=== PATIENT | female | born 1940 | race Caucasian/White ===

== ENCOUNTER 2017-04-11 23:30 | Emergency (ER) | payer MEDICARE, OTHER ==
[2017-04-11 23:45] VITALS: O2SAT 95
--- NOTE | 2017-04-11 23:55 | ERPHSYRPT ---
- History of Present Illness Time Seen by Provider: 04/11/17 23:36 Source: patient, family Patient Subjective Stated Complaint: cut her arm on [place] its been bleeding for 2 days , patinuzhatn takes plavix Triage Nursing Assessment: pt alert and oreientedx3, ambulates well, gait is steady, has bleeding external and under the skin on left forearm leaked through gauze dressing that has been applied , pulses present bialteral radius cap refill immediate no other bleeding noted. Physician History: CC: left forearm injury HX: 76 y/o patient of Dr Kaur tore skin on left forearm yesterday on a [place]ena [place]. No FB. It continues to bleed despite pressure dressings. No other injuries. Tetanus vaccine up to date. Occurred: yesterday Severity of Pain-Max: mild Severity of Pain-Current: mild Extremities Pain Location: forearm: left Allergies/Adverse Reactions: zolpidem tartrate [From Ambien] Allergy (Verified 06/08/15 09:55) Home Medications: Alprazolam 1 mg [Xanax 1 mg] 1 mg PO BID 05/24/15 [History] Amlodipine Besylate 10 mg [Norvasc 10 MG] 10 mg PO DAILY 05/24/15 [History] Aspirin 81 gm Chew [Baby Aspirin 81 mg Chew] 81 mg PO BID 05/24/15 [ History] Clopidogrel Bisulfate 75 mg [PLAVIX 75 MG Tablet] 75 mg PO DAILY 05/24/15 [History] Ergocalciferol (Vitamin D2) [Vitamin D] 50,000 unit PO WEEKLY 05/24/15 [History] Fenofibrate,Micronized 145 mg* [Tricor 145 MG] 145 mg PO DAILY 05/24/15 [ History] Furosemide 1 tab PO BID 05/24/15 [History] Insulin Glargine [Lantus Insulin] 6 unit SQ HS 05/24/15 [History] Magnesium Oxide 400 mg [Mag-Ox 400] 400 mg PO BID 05/24/15 [History] Metoprolol Tartrate 50 mg PO DAILY 05/24/15 [History] Oxycodone HCl Cr 40 mg [Oxycontin 40 mg ER] 40 mg PO BID 05/24/15 [History ] PANTOPRAZOLE 40 mg Tablet [Protonix 40MG Tablet] 40 mg PO DAILY 05/24/15 [ History] Pravastatin Sodium 20 mg PO HS 05/24/15 [History] Hx Tetanus, Diphtheria Vaccination/Date Given: Yes Hx Influenza Vaccination/Date Given: Yes Hx Pneumococcal Vaccination/Date Given: Yes Immunizations Up to Date: Yes - Review of Systems Constitutional: No Fever Musculoskeletal: Injury (left forearm), No Back Pain, No Neck Pain - Past Medical History Pertinent Past Medical History: Yes Neurological History: TIA ENT History: No Pertinent History Cardiac History: Coronary Artery Disease, High Cholesterol, Hypertension, Myocardial Infarction ([place]) Respiratory History: No Pertinent History Endocrine Medical History: Diabetes Type I Musculoskeletal History: Arthritis, Degenerative Disk Disease, Osteoarthritis GI Medical History: Gallbladder Disease, Hernia History: Other Psycho-Social History: Anxiety Female Reproductive Disorders: No Pertinent History Other Medical History: Kidney stones - Past Surgical History Past Surgical History: Yes Neuro Surgical History: No Pertinent History Cardiac: CABG Respiratory: No Pertinent History Gastrointestinal: Appendectomy, Cholecystectomy, Other Genitourinary: No Pertinent History Musculoskeletal: Orthopedic Surgery Female Surgical History: Hysterectomy Other Surgical History: Colonoscopy, STENT PUT IN ARTERY IN STOMACH. bilat. knee replacement - Social History Smoking Status: Never smoker How long have you smoked: 2 MONTHS Exposure to second hand smoke: No Drug Use: none Patient Lives Alone: No - Female History Hx Now: No - Nursing Vital Signs Nursing Vital Signs: Initial Vital Signs Temperature 98.4 F 04/11/17 23:30 Pulse Rate 88 04/11/17 23:30 Respiratory Rate 18 04/11/17 23:30 O2 Sat by Pulse Oximetry 95 04/11/17 23:30 Pain Scale Pain Intensity 0 - Physical Exam General Appearance: alert Neck Exam: supple Cardiovascular/Respiratory Exam: regular rate/rhythm Mental Status Exam: alert, oriented x 3, cooperative Skin Exam: warm, dry, other (skin tear left forearm dorsal is resealed but has some bleeding at the unoppsed edge. No FB. Some eccymoses.) SpO2 Interpretation: normal SpO2: 95 Oxygen Delivery: Room Air - Course Nursing assessment & vital signs reviewed: Yes Ordered Tests: Active Orders 24 hr Category Date Time Status Wound Care STAT Care 04/11/17 23:49 Active - Progress Progress Note: 04/11/17 23:52 Will use surgicel pressure dressing. No sign of infection. Wound care intr given. 04/12/17 00:01 Bleeding is controlled with surgicel. Will dress and release. Counseled pt/family regarding: diagnosis, need for follow-up - Departure Time of Disposition: 00:01 Departure Disposition: Home Clinical Impression: Skin tear of left forearm without complication Qualifiers: Encounter type: initial encounter Qualified Code(s): S51.812A - Laceration without foreign body of left forearm, initial encounter Condition: Stable Critical Care Time: No Referrals: MIKY KAUR MD [Primary Care Provider] - Instructions: Abrasion Additional Instructions: Hold pressure for any bleeding. Change dressing AM. Cleanse gently with mild soap and water after dressing changes.
[2017-04-12 00:06] VITALS: BP 131/60; PULSE 79
== END 2017-04-12 00:12 | disposition home or self-care (01) ==
LOC: ED 23:30
DX: S81.812A Laceration without foreign body, left lower leg, initial encounter (principal); W45.8XXA Other foreign body or object entering through skin, initial encounter; Y93.H2 Activity, gardening and landscaping
CPT/HCPCS: 99283

== ENCOUNTER 2017-05-11 11:45 | Emergency (ER) | payer MEDICARE, OTHER ==
[2017-05-11] MEDS ORDERED: MORPHINE SULFATE 2 MG INJ IV ONE (12:05)
[2017-05-11] MEDS ORDERED: Zofran 4 MG/2 ML VIAL IV ONE (12:05)
--- NOTE | 2017-05-11 12:13 | ERPHSYRPT ---
- History of Present Illness Time Seen by Provider: 05/11/17 12:09 Source: patient, family Patient Subjective Stated Complaint: tripped over her shoes yestarday AM.. pain to right shoulder and bruuised. pain to left upper back with bruising and pain and bruising to left butticks. has been able to walk with pain. states was unable to get herself up after fall. layed on the floor for 30 minutes prior to help. Triage Nursing Assessment: alet and orieted x3. denies hitting head. tripped over box. pain to right shoulder. large bruising noted at scapular area. able to love arm with no difficulty. lungs clar bilateral. bruising noted to left lower back. pain on palpation. large bruising and swelling to left buttocks. pain on palpation. + pedal pulses bilat. strong flex/extension. Physician History: 77 yo female who is currently on plavix comes to the ER after tripping over a pair of shoes and landing on the right side of her shoulder and her left pelvic area. Pt arrives with a large area of eccymoses in both areas. Pt describes the pain as sharp, constant, 6/10, worse with movement and pt has not taken any pain meds. No LOC. Occurred: yesterday Reason for Fall: tripped Injuries/Pain Location: upper extremity, pelvis Loss of Consciousness: no loss of consciousness Quality: sharpness Allergies/Adverse Reactions: zolpidem tartrate [From Ambien] Allergy (Verified 06/08/15 09:55) Home Medications: Alprazolam 1 mg [Xanax 1 mg] 1 mg PO TID 05/24/15 [History] Amlodipine Besylate 10 mg [Norvasc 10 MG] 10 mg PO DAILY 05/24/15 [History] Aspirin 81 gm Chew [Baby Aspirin 81 mg Chew] 81 mg PO BID 05/24/15 [ History] Clopidogrel Bisulfate 75 mg [PLAVIX 75 MG Tablet] 75 mg PO DAILY 05/24/15 [History] Ergocalciferol (Vitamin D2) [Vitamin D] 50,000 unit PO WEEKLY 05/24/15 [History] Fenofibrate,Micronized 145 mg* [Tricor 145 MG] 145 mg PO DAILY 05/24/15 [ History] Furosemide 1 tab PO BID 05/24/15 [History] Insulin Glargine [Lantus Insulin] 6 unit SQ HS 05/24/15 [History] Magnesium Oxide 400 mg [Mag-Ox 400] 400 mg PO BID 05/24/15 [History] Metoprolol Tartrate 50 mg PO DAILY 05/24/15 [History] Oxycodone HCl Cr 40 mg [Oxycontin 40 mg ER] 40 mg PO BID 05/24/15 [History ] PANTOPRAZOLE 40 mg Tablet [Protonix 40MG Tablet] 40 mg PO BID 05/24/15 [ History] Pravastatin Sodium 20 mg PO HS 05/24/15 [History] Allopurinol 100 mg [Zyloprim 100 mg] 100 mg PO BID 05/11/17 [History] Potassium Chloride 10 Meq Tab* [Klor Con 10 MEQ] 10 meq PO BID 05/11/17 [ History] Hx Tetanus, Diphtheria Vaccination/Date Given: Yes Hx Influenza Vaccination/Date Given: Yes Hx Pneumococcal Vaccination/Date Given: Yes Immunizations Up to Date: Yes - Review of Systems Constitutional: No Fever, No Chills Eyes: No Symptoms Ears, Nose, & Throat: No Symptoms Respiratory: No Cough, No Dyspnea Cardiac: No Chest Pain, No Edema, No Syncope Abdominal/Gastrointestinal: No Abdominal Pain, No Nausea, No Vomiting, No Diarrhea Genitourinary Symptoms: No Dysuria Musculoskeletal: No Back Pain, No Neck Pain Skin: Other (bruising), No Rash Neurological: No Dizziness, No Focal Weakness, No Sensory Changes Psychological: No Symptoms Endocrine: No Symptoms All Other Systems: Reviewed and Negative - Past Medical History Pertinent Past Medical History: Yes Neurological History: TIA ENT History: No Pertinent History Cardiac History: Coronary Artery Disease, High Cholesterol, Hypertension, Myocardial Infarction ([place]) Respiratory History: No Pertinent History Endocrine Medical History: Diabetes Type I Musculoskeletal History: Arthritis, Degenerative Disk Disease, Osteoarthritis GI Medical History: Gallbladder Disease, Hernia History: Other Psycho-Social History: Anxiety Female Reproductive Disorders: No Pertinent History Other Medical History: Kidney stones - Past Surgical History Past Surgical History: Yes Neuro Surgical History: No Pertinent History Cardiac: CABG Respiratory: No Pertinent History Gastrointestinal: Appendectomy, Cholecystectomy, Other Genitourinary: No Pertinent History Musculoskeletal: Orthopedic Surgery Female Surgical History: Hysterectomy Other Surgical History: Colonoscopy, STENT PUT IN ARTERY IN STOMACH. bilat. knee replacement - Social History Smoking Status: Never smoker How long have you smoked: 2 MONTHS Exposure to second hand smoke: No Drug Use: none Patient Lives Alone: No - Female History Hx Now: No - Nursing Vital Signs Nursing Vital Signs: Initial Vital Signs Temperature 97.8 F 05/11/17 11:50 Pulse Rate 75 05/11/17 11:50 Respiratory Rate 18 05/11/17 11:50 Blood Pressure 117/38 05/11/17 11:50 O2 Sat by Pulse Oximetry 96 05/11/17 11:50 Pain Scale Pain Intensity 0 - [place] Coma Score Best Eye Response ([place]): (4) open spontaneously Best Verbal Response ([place]): (5) oriented Best Motor Response ([place]): (6) obeys commands [place] Total: 15 - Physical Exam General Appearance: no apparent distress, alert Head Injury: no evidence of injury Eye Exam: PERRL/EOMI ENT Exam: airway nml Neck Exam: normal inspection, No tenderness Respiratory/Chest Exam: normal breath sounds, No chest tenderness, No respiratory distress Cardiovascular Exam: normal heart sounds, regular rate/rhythm Gastrointestinal Exam: soft, No tenderness, No distention, No guarding, No ecchymosis Back Exam: normal inspection, No vertebral tenderness Extremity Exam: normal inspection, pelvis stable, contusions, joint swelling, hip tenderness, No deformities Neurologic Exam: alert, oriented x 3, cooperative, sensation nml, No motor deficits Skin Exam: warm, dry, ecchymosis SpO2 Interpretation: normal SpO2: 96 Oxygen Delivery: Room Air - Course Nursing assessment & vital signs reviewed: Yes Ordered Tests: Active Orders 24 hr Category Date Time Status Cold Application STAT Care 05/11/17 15:01 Active IV Insertion STAT Care 05/11/17 12:05 Active ABDOMEN AND PELVIS W/0 CONTRAS [CT] Stat Exams 05/11/17 12:06 Completed RECONSTRUCTION [CT] Stat Exams 05/11/17 12:14 Completed UPPER EXTREMITY W/O CONTRAST [CT] Stat Exams 05/11/17 12:08 Completed CBC W DIFF Stat Lab 05/11/17 12:20 Completed CK (IN-HOUSE) [CK-Creatinine Phosphokinase] Stat Lab 05/11/17 12:20 Completed CMP Stat Lab 05/11/17 12:20 Completed CULTURE,URINE Stat Lab 05/11/17 13:00 Received PROTIME WITH INR Stat Lab 05/11/17 12:20 Completed PTT Stat Lab 05/11/17 12:20 Completed UA W/ MICROSCOPIC Stat Lab 05/11/17 13:00 Completed Medication Summary Discontinued Medications Generic Name Dose Route Start Last Admin Trade Name Keshav PRN Reason Stop Dose Admin Ceftriaxone Sodium/Dextrose 1 g in 50 mls @ 100 mls/hr 05/11/17 15:47 16:05 Rocephin 1 Gm-D5w 50 Ml Bag IV 05/11/17 16:16 100 mls/hr STAT STA Administration Ceftriaxone Sodium/Dextrose Confirm 05/11/17 15:59 Rocephin 1 Gm-D5w 50 Ml Bag Administered 05/11/17 16:00 Dose 1 g in 50 mls @ ud IV .STK-MED ONE Morphine Sulfate 2 mg 05/11/17 12:05 05/11/17 12:17 Morphine Sulfate 2 Mg Inj IV 05/11/17 12:06 2 mg STAT ONE Administration Morphine Sulfate Confirm 05/11/17 12:14 Morphine Sulfate 2 Mg Inj Administered 05/11/17 12:15 Dose 2 mg .ROUTE .STK-MED ONE Ondansetron HCl 4 mg 05/11/17 12:05 05/11/17 12:17 Zofran 4 Mg/2 Ml Vial IV 05/11/17 12:06 4 mg STAT ONE Administration Ondansetron HCl Confirm 05/11/17 12:14 Zofran 4 Mg/2 Ml Vial Administered 05/11/17 12:15 Dose 4 mg .ROUTE .STK-MED ONE Lab/Rad Data: Laboratory Result Diagrams 05/11/17 12:20 05/11/17 12:20 Laboratory Results 05/11/17 05/11/17 05/11/17 Range/Units 13:00 12:20 12:20 WBC (4.0-10.5) K/mm3 RBC (4.1-5.4) M/mm3 Hgb (12.0-16.0) gm/dl Hct (35-47) % MCV (78-100) fl MCH (26-32) pg MCHC (32-36) g/dl RDW (11.5-14.0) % Plt Count (150-450) K/mm3 MPV (6-9.5) fl Gran % (36.0-66.0) % Lymphocytes % (24.0-44.0) % Monocytes % (0.0-12.0) % Eosinophils % (0.00-5.0) % Basophils % (0.0-0.4) % Basophils # (0-0.4) INR 1.11 (0.8-3.0) APTT 33.5 (25.3-37.0) SECONDS Sodium (136-145) mEq/L Potassium (3.5-5.1) mEq/L Chloride (98-107) mEq/L Carbon Dioxide (21-32) mEq/L Anion Gap (5-15) MEQ/L BUN (9-20) mg/dL Creatinine (0.55-1.30) mg/dl Estimated GFR ML/MIN Glucose (70-110) MG/DL Calcium (8.5-10.1) mg/dL Total Bilirubin (0.2-1.0) mg/dL AST (15-37) U/L ALT (12-78) U/L Alkaline Phosphatase (46-116) U/L Creatine Kinase 613 H (26-192) U/L Serum Total Protein (6.4-8.2) gm/dL Albumin (3.4-5.0) g/dL Ur Collection Type CLEAN CATCH Urine Color YELLOW (YELLOW) Urine Appearance SLIGHTLY CLOUDY (CLEAR) Urine pH 5.0 (5-6) Ur Specific [place] 1.010 (1.005-1.025) Urine Protein TRACE (Negative) Urine Ketones NEGATIVE (NEGATIVE) Urine Blood NEGATIVE (0-5) Jonathon/ul Urine Nitrite POSITIVE (NEGATIVE) Urine Bilirubin NEGATIVE (NEGATIVE) Urine Urobilinogen NORMAL (0-1) mg/dL Ur Leukocyte Esterase 2+ (NEGATIVE) Urine Microscopic RBC 2-5 (0-2) /HPF Urine Microscopic WBC 15-25 (0-5) /HPF Ur Epithelial Cells FEW (FEW) /HPF Urine Bacteria PACKED (NEGATIVE) /HPF Urine Glucose NEGATIVE (NEGATIVE) mg/dL Specimen Received 05-1105/11/17 05/11/17 Range/Units 12:20 12:20 WBC 8.2 (4.0-10.5) K/mm3 RBC 3.43 L (4.1-5.4) M/mm3 Hgb 10.7 L (12.0-16.0) gm/dl Hct 32.5 L (35-47) % MCV 94.8 (78-100) fl MCH 31.1 (26-32) pg MCHC 32.9 (32-36) g/dl RDW 14.9 H (11.5-14.0) % Plt Count 225 (150-450) K/mm3 MPV 11.1 H (6-9.5) fl Gran % 57.2 (36.0-66.0) % Lymphocytes % 30.4 (24.0-44.0) % Monocytes % 8.8 (0.0-12.0) % Eosinophils % 3.2 (0.00-5.0) % Basophils % 0.4 (0.0-0.4) % Basophils # 0.03 (0-0.4) INR (0.8-3.0) APTT (25.3-37.0) SECONDS Sodium 141 (136-145) mEq/L Potassium 3.7 (3.5-5.1) mEq/L Chloride 102 (98-107) mEq/L Carbon Dioxide 32.2 H (21-32) mEq/L Anion Gap 10.8 (5-15) MEQ/L BUN 38 H (9-20) mg/dL Creatinine 1.85 H (0.55-1.30) mg/dl Estimated GFR 28 ML/MIN Glucose 86 (70-110) MG/DL Calcium 9.5 (8.5-10.1) mg/dL Total Bilirubin 1.00 (0.2-1.0) mg/dL AST 72 H (15-37) U/L ALT 36 (12-78) U/L Alkaline Phosphatase 83 (46-116) U/L Creatine Kinase (26-192) U/L Serum Total Protein 6.8 (6.4-8.2) gm/dL Albumin 3.3 L (3.4-5.0) g/dL Ur Collection Type Urine Color (YELLOW) Urine Appearance (CLEAR) Urine pH (5-6) Ur Specific [place] (1.005-1.025) Urine Protein (Negative) Urine Ketones (NEGATIVE) Urine Blood (0-5) Jonathon/ul Urine Nitrite (NEGATIVE) Urine Bilirubin (NEGATIVE) Urine Urobilinogen (0-1) mg/dL Ur Leukocyte Esterase (NEGATIVE) Urine Microscopic RBC (0-2) /HPF Urine Microscopic WBC (0-5) /HPF Ur Epithelial Cells (FEW) /HPF Urine Bacteria (NEGATIVE) /HPF Urine Glucose (NEGATIVE) mg/dL Specimen Received - Progress Progress: improved Progress Note: 05/11/17 16:[address] scan abd/pelvis shows a hematoma in the left gluteus nisha. The CT lumbar spine and CT UE do not show any acute findings. Pt has a Hgb of 10.7. I spoke to Dr Wallace, the general surgeon who wants to keep the patient as an OBS to follow her Hgb and to hold her plavix. Pt is concerned that her insurance company will not pay for an OBS status. The director case management says that the patient will only fit OBS status. Pt will sign out AMA and I have discussed the risks of signing out AMA. Pt has agreed to hold plavix and to F/U with Dr Kaur. - Departure Time of Disposition: 16:23 Departure Disposition: AMA Clinical Impression: Hematoma UTI (urinary tract infection) Qualifiers: Urinary tract infection type: site unspecified Hematuria presence: without hematuria Qualified Code(s): N39.0 - Urinary tract infection, site not specified Condition: Stable Critical Care Time: Yes Critical Care Time(excluding separately billable procedures): 75-104 minutes Referrals: MIKY KAUR MD [Primary Care Provider] - Instructions: Hematoma, Urinary Tract Infection (UTI) Additional Instructions: HOLD Clopidogrel for the next 2 days and follow up with Dr. Kaur in the next 2 days. Return to the ER with expanding hematoma, pain, fever or chills. Prescriptions: Cefdinir [Omnicef] 300 mg PO BID #14 capsule
[2017-05-11] MEDS ORDERED: Zofran 4 MG/2 ML VIAL ONE (12:14)
[2017-05-11] MEDS ORDERED: MORPHINE SULFATE 2 MG INJ ONE (12:14)
[2017-05-11 12:28] LABS: BASOPHIL % 0.4 % (0.0-0.4); Eosinophil % 3.2 % (0.00-5.0); Granulocytes % 57.2 % (36.0-66.0); Lymphocytes % 30.4 % (24.0-44.0); Mean Cell Volume 94.8 fl (78-100); Mean Platelet Volume 11.1 fl (6-9.5); Monocytes % 8.8 % (0.0-12.0); Platelet Count 225 K/mm3 (150-450); Red Blood Count 3.43 M/mm3 (4.1-5.4); Red Cell Distribution Width 14.9 % (11.5-14.0); White Blood Count 8.2 K/mm3 (4.0-10.5)
[2017-05-11 12:31] LABS: Mean Corpuscular Hemoglobin 31.1 pg (26-32)
[2017-05-11 12:46] LABS: INR 1.11 (0.8-3.0); PROTIME 12.5 SECONDS (9.95-12.35)
[2017-05-11 12:49] LABS: PTT 33.5 SECONDS (25.3-37.0)
[2017-05-11 12:57] LABS: ALBUMIN 3.3 g/dL (3.4-5.0); ANION GAP 10.8 MEQ/L (5-15); Carbon Dioxide 32.2 mEq/L (21-32); Potassium 3.7 mEq/L (3.5-5.1); Total Protein 6.8 gm/dL (6.4-8.2)
[2017-05-11 13:23] LABS: Collection Type CLEAN CATCH; Glucose NEGATIVE (NEGATIVE); Leukocyte Esterase 2+ (NEGATIVE)
[2017-05-11 13:24] LABS: Bilirubin NEGATIVE (NEGATIVE); Blood NEGATIVE Ery/ul (0-5); COMPLETE URINE MICROSCOPIC? YES
[2017-05-11 13:51] LABS: WBC 15-25 /HPF (0-5)
[2017-05-11 13:52] LABS: ADD URINE CULTURE? YES (NO); Bacteria PACKED /HPF (NEGATIVE); Epithelial Cells FEW /HPF (FEW)
--- NOTE | 2017-05-11 14:13 | XRAY ---
Indication: Pain following fall. Hematoma. Multiple contiguous axial images obtained through the abdomen and pelvis without contrast as ordered. Comparison: January 23, 2014. Lung bases again demonstrates bibasilar atelectasis/scarring. Posterior medial right lower lobe calcific granuloma, not previously imaged. Heart is now borderline enlarged. Noncontrasted stomach and bowel loops appear nonobstructed. Again mild diffuse scattered colonic fecal debris more than before. Again previous cholecystectomy and hysterectomy. Stable scattered hepatic/splenic calcified granulomas, left renal atrophy, and bilateral renal cysts. Remaining liver, pancreas, spleen, adrenal glands, kidneys, ureters, and bladder appear unremarkable for noncontrast exam. There remains extensive aortoiliac calcifications without AAA. Osseous structures again demonstrates osteopenia, multilevel degenerative spondylosis, and minimal L4 grade 1 spondylolisthesis. Stable left gluteal calcified granulomas. There is now incompletely visualized 3.6 x 5.5 cm hematoma like density in the left gluteus nisha muscle with adjacent subcutaneous edema/induration. Impression: 1. Incompletely visualized left gluteus nisha intramuscular hematoma. 2. Negative for acute fracture/dislocation. Stable osteopenia, spinal degenerative spondylosis, and L4 grade 1 spondylolisthesis. 3. Fecal stasis without obstruction. 4. Stable left renal atrophy, bilateral renal cysts, and hepatic/splenic calcified granulomas. CT DI 15.95
--- NOTE | 2017-05-11 14:19 | XRAY ---
Indication: Pain following fall. Axial, coronal, and sagittal reformatted images of the lumbar spine performed using the raw data from the CT abdomen/pelvis study of the same day. Comparison: CT abdomen/pelvis January 23, 2014. Osseous structures remain demineralized consistent with patient's age. No acute fracture or suspicious bony lesions. Stable multilevel broad-based disc bulge, L4-S1 degenerative vacuum disc phenomenon, and bilateral L3-S1 degenerative facet arthropathy. The sagittal and coronal reformatted images demonstrates stable 7 mm anterolisthesis of L4 on L5 and mild L2 superior endplate concave deformity. There is also stable minimal dextroscoliosis centered at the thoracolumbar junction. No acute compression fracture or new subluxation. CT abdomen/pelvis reported separately. Impression: Stable osteopenia, multilevel degenerative spondylosis, L4 grade 1 spondylolisthesis, and minimal scoliosis. No new/acute findings.
--- NOTE | 2017-05-11 14:24 | XRAY ---
Indication: Pain following fall. Multiple contiguous axial images obtained through the right shoulder. Sagittal and coronal reformatted images obtained. Comparison: Right shoulder x-ray April 17, 2013. Stable osteopenia, advanced glenohumeral degenerative changes with heterotopic ossifications, and scattered vascular calcifications. No acute fracture, dislocation, or suspicious bony lesions. AC joint unremarkable. Visualized right lung clear. CT abdomen reported separately. Impression: Stable osteopenia and advanced degenerative changes. No new/acute findings. CTDI 73.52
[2017-05-11] MEDS ORDERED: ROCEPHIN 1 Gm-D5w 50 ml Bag** 1 G/50 ML IVPB IV STA (15:47)
[2017-05-11] MEDS ORDERED: ROCEPHIN 1 Gm-D5w 50 ml Bag** 1 G/50 ML IVPB IV ONE (15:59)
[2017-05-11 16:11] VITALS: BP 124/59; PULSE 71
[2017-05-11 16:25] VITALS: O2SAT 96
== END 2017-05-11 17:00 | disposition home or self-care (01) ==
LOC: ED 11:45
DX: N39.0 Urinary tract infection, site not specified (principal); M25.511 Pain in right shoulder; M54.6 Pain in thoracic spine; S30.0XXA Contusion of lower back and pelvis, initial encounter; W01.0XXA Fall on same level from slipping, tripping and stumbling without subsequent striking against object, initial encounter; Z79.899 Other long term (current) drug therapy; Z79.891 Long term (current) use of opiate analgesic; I25.10 Atherosclerotic heart disease of native coronary artery without angina pectoris; E78.00 Pure hypercholesterolemia, unspecified; I10 Essential (primary) hypertension; I25.2 Old myocardial infarction; E10.9 Type 1 diabetes mellitus without complications; F41.9 Anxiety disorder, unspecified; Z95.1 Presence of aortocoronary bypass graft
CPT/HCPCS: 36000; 36415; 73200; 74176; 76376; 80053; 81000; 82550; 85025; 85610; 85730; 87077; 87086; 87186; 96365; 96374; 96375; 99285; J0696; J2270; J2405

== ENCOUNTER 2017-06-26 13:22 | Emergency (ER) | payer MEDICARE, OTHER ==
--- NOTE | 2017-06-26 14:05 | ERPHSYRPT ---
- History of Present Illness Time Seen by Provider: 06/26/17 13:58 Source: patient Exam Limitations: no limitations Patient Subjective Stated Complaint: PT TRIPPED AND FELL LANDING ON FACE,PT STATES SHE IS IN NO PAIN, NO LOC Triage Nursing Assessment: PT WALKED IN, RESP EASY SKIN W/D PINK. HAS SKIN TEAR TO FOREHEAD,NOSE, AND ABRASIONS TO NOSE , NO BLEEDING NOTED Physician History: The patient is a 77-year-old female with family complaining that she tripped and fell directly on her face on the tile floor in her house. She did not lose consciousness. She complains of face pain but no neck pain. Her last tetanus vaccination was less than 5 years ago. She is on Plavix. Her past medical history is significant for hypertension, diabetes, high cholesterol, GERD, coronary artery disease, gout, and CABG. Occurred: just prior to arrival Reason for Fall: tripped Injuries/Pain Location: face Loss of Consciousness: no loss of consciousness Quality: aching Severity of Pain-Max: mild Severity of Pain-Current: mild Modifying Factors: Improves With: nothing Associated Symptoms (Fall): denies symptoms Allergies/Adverse Reactions: zolpidem tartrate [From Ambien] Allergy (Verified 06/26/17 13:45) Home Medications: Alprazolam 1 mg [Xanax 1 mg] 1 mg PO TID 05/24/15 [History] Amlodipine Besylate 10 mg [Norvasc 10 MG] 10 mg PO DAILY 05/24/15 [History] Aspirin 81 gm Chew [Baby Aspirin 81 mg Chew] 81 mg PO BID 05/24/15 [ History] Clopidogrel Bisulfate 75 mg [PLAVIX 75 MG Tablet] 75 mg PO DAILY 05/24/15 [History] Ergocalciferol (Vitamin D2) [Vitamin D] 50,000 unit PO WEEKLY 05/24/15 [History] Fenofibrate,Micronized 145 mg* [Tricor 145 MG] 145 mg PO DAILY 05/24/15 [ History] Furosemide 1 tab PO BID 05/24/15 [History] Insulin Glargine [Lantus Insulin] 6 unit SQ HS 05/24/15 [History] Magnesium Oxide 400 mg [Mag-Ox 400] 400 mg PO BID 05/24/15 [History] Metoprolol Tartrate 50 mg PO DAILY 05/24/15 [History] Oxycodone HCl Cr 40 mg [Oxycontin 40 mg ER] 40 mg PO BID 05/24/15 [History ] PANTOPRAZOLE 40 mg Tablet [Protonix 40MG Tablet] 40 mg PO BID 05/24/15 [ History] Pravastatin Sodium 20 mg PO HS 05/24/15 [History] Allopurinol 100 mg [Zyloprim 100 mg] 100 mg PO BID 05/11/17 [History] Potassium Chloride 10 Meq Tab* [Klor Con 10 MEQ] 10 meq PO BID 05/11/17 [ History] Hx Tetanus, Diphtheria Vaccination/Date Given: Yes Hx Influenza Vaccination/Date Given: Yes Hx Pneumococcal Vaccination/Date Given: Yes Immunizations Up to Date: Yes - Review of Systems Constitutional: No Fever, No Chills Eyes: No Symptoms Ears, Nose, & Throat: No Symptoms Respiratory: No Cough, No Dyspnea Cardiac: No Chest Pain, No Edema, No Syncope Abdominal/Gastrointestinal: No Abdominal Pain, No Nausea, No Vomiting, No Diarrhea Genitourinary Symptoms: No Dysuria Musculoskeletal: Fall, Injury, No Back Pain, No Neck Pain Skin: Skin Lesions, No Rash Neurological: No Dizziness, No Focal Weakness, No Sensory Changes Psychological: No Symptoms Endocrine: No Symptoms Hematologic/Lymphatic: No Symptoms Immunological/Allergic: No Symptoms All Other Systems: Reviewed and Negative - Past Medical History Pertinent Past Medical History: Yes Neurological History: TIA ENT History: No Pertinent History Cardiac History: Coronary Artery Disease, High Cholesterol, Hypertension, Myocardial Infarction ([place]) Respiratory History: No Pertinent History Endocrine Medical History: Diabetes Type I Musculoskeletal History: Arthritis, Degenerative Disk Disease, Osteoarthritis GI Medical History: Gallbladder Disease, Hernia History: Other Psycho-Social History: Anxiety Female Reproductive Disorders: No Pertinent History Other Medical History: Kidney stones - Past Surgical History Past Surgical History: Yes Neuro Surgical History: No Pertinent History Cardiac: CABG Respiratory: No Pertinent History Gastrointestinal: Appendectomy, Cholecystectomy, Other Genitourinary: No Pertinent History Musculoskeletal: Orthopedic Surgery Female Surgical History: Hysterectomy Other Surgical History: Colonoscopy, STENT PUT IN ARTERY IN STOMACH. bilat. knee replacement - Social History Smoking Status: Never smoker How long have you smoked: 2 MONTHS Exposure to second hand smoke: No Drug Use: none Patient Lives Alone: No - Female History Hx Last Menstrual Period: POST Hx Now: No - Nursing Vital Signs Nursing Vital Signs: Initial Vital Signs Temperature 97.2 F 06/26/17 13:40 Pulse Rate 79 06/26/17 13:40 Respiratory Rate 18 06/26/17 13:40 Blood Pressure 107/56 06/26/17 13:40 O2 Sat by Pulse Oximetry 99 06/26/17 13:40 Pain Scale Pain Intensity 0 - Piter Coma Score Best Eye Response (Piter): (4) open spontaneously Best Verbal Response (Piter): (5) oriented Best Motor Response (Lee): (6) obeys commands Piter Total: 15 - Physical Exam General Appearance: no apparent distress, alert Head Injury: contusions (Large contusion with swelling to the mid part of the for head. Abrasion. Contusion, swelling, skin tear and small superficial laceration to the nose bridge.), tenderness Eye Exam: PERRL/EOMI ENT Exam: airway nml Neck Exam: normal inspection, No tenderness Respiratory/Chest Exam: normal breath sounds, No chest tenderness, No respiratory distress Cardiovascular Exam: regular rate/rhythm, murmur Gastrointestinal Exam: soft, No tenderness, No distention, No guarding, No ecchymosis Rectal Exam: not done Back Exam: normal inspection, No vertebral tenderness Extremity Exam: normal inspection, normal range of motion, pelvis stable, No deformities Neurologic Exam: alert, oriented x 3, cooperative, sensation nml, No motor deficits Skin Exam: abrasion, laceration SpO2 Interpretation: normal SpO2: 99 Oxygen Delivery: Room Air - CT Exams Head CT Interpretation: Negative, No Fracture (Per Dr Duenas) Cervical Spine CT Interpretation: Negative, No Fracture (Per DR Duenas) Maxillofacial Bones CT Interpretation: Negative, No Fracture (Per Dr Duenas) Ordered Tests: Active Orders 24 hr Category Date Time Status Wound Care STAT Care 06/26/17 14:25 Active CERVICAL SPINE WO CONTRAST [CT] Stat Exams 06/26/17 14:08 Completed FACIAL BONES WO CONTRAST [CT] Stat Exams 06/26/17 14:10 Completed HEAD WITHOUT CONTRAST [CT] Stat Exams 06/26/17 14:08 Completed - Progress Progress: improved Counseled pt/family regarding: rad results - Departure Time of Disposition: 15:31 Departure Disposition: Home Clinical Impression: Facial contusion, Skin tear Condition: Stable Critical Care Time: No Referrals: MIKY IQBAL MD [Primary Care Provider] - Additional Instructions: You have a facial contusion with skin tears. The skin tears were repaired with Dermabond. You can expect major bruising to your face and her right leg. Take Tylenol as needed for pain. Follow-up as needed.
--- NOTE | 2017-06-26 15:08 | XRAY ---
Indication: Frontal head injury following fall. Multiple contiguous axial images obtained through the head without contrast. Comparison: May 01, 2014. Again age-appropriate global atrophy and mild periventricular degenerative micro-ischemia. No acute intracranial hemorrhage, abnormal extra-axial fluid collection, or mass effect. Fourth ventricle is midline without hydrocephalus. Bony calvarium intact. New small frontal scalp hematoma. CT facial bones and CT cervical spine reported separately. Impression: Stable nonacute senile brain. New frontal scalp hematoma. CT DI 50.97
--- NOTE | 2017-06-26 15:10 | XRAY ---
Indication: Frontal head injury following fall. Multiple contiguous axial images obtained through the facial bones. Sagittal and coronal reformatted images obtained. Comparison: None. A few images are degraded by motion artifact. Patient is edentulous. Mild frontal scalp hematoma. No acute fracture, suspicious bony lesions, or radiopaque foreign body. Orbits including roof, mcallister, and floors intact. Paranasal sinuses and nasal passages clear. Visualized noncontrasted soft tissues demonstrates scattered carotid and vertebral artery calcifications bilaterally. CT head and CT cervical spine reported separately. Impression: Minimal motion artifact. Frontal scalp hematoma. No acute fracture. CT DI 59.47
--- NOTE | 2017-06-26 15:16 | XRAY ---
Indication: Frontal head injury following fall. Multiple contiguous axial images obtained through the cervical spine. Sagittal and coronal reformatted images obtained. Comparison: None. Axial images negative for acute fracture, suspicious bony lesions, or spinal canal stenosis. Mild C4-C7 degenerative endplate spurring. Also mild multilevel bilateral degenerative facet hypertrophy, right greater than left. Sagittal and coronal reformatted images demonstrates mild straightening of the cervical lordosis, positional versus paraspinal spasm. C5-C6 degenerative disc space loss. No acute compression fracture, subluxation, or jumped facet. Normal-appearing craniocervical junction. Visualized noncontrasted soft tissues demonstrates scattered vascular calcifications bilaterally. Lung apices clear. CT facial bones and CT head reported separately. Impression: 1. Negative acute fracture/subluxation. 2. Lordotic straightening, positional versus paraspinal spasm. 3. Incidental multilevel degenerative changes. CT DI 92.13
[2017-06-26 15:32] VITALS: O2SAT 99
[2017-06-26 15:49] VITALS: BP 107/56; PULSE 79
== END 2017-06-26 15:49 | disposition home or self-care (01) ==
LOC: ED 13:22
PROC: 0HQ1XZZ Repair Face Skin, External Approach (ICD-10-PCS; principal; 2017-06-26)
DX: S00.83XA Contusion of other part of head, initial encounter (principal); S01.21XA Laceration without foreign body of nose, initial encounter; W01.0XXA Fall on same level from slipping, tripping and stumbling without subsequent striking against object, initial encounter
CPT/HCPCS: 12011; 70450; 70486; 72125; 99283; 99284

== ENCOUNTER 2017-12-12 17:13 | Inpatient (IN) | payer MEDICARE, OTHER ==
[2017-12-12] MEDS ORDERED: Cardizem IV 50 MG/10 ML IV ONE ×2 (17:53→18:11)
[2017-12-12] MEDS ORDERED: Lasix 40 MG/4 ML IV ONE (17:58)
--- NOTE | 2017-12-12 18:01 | ERPHSYRPT ---
- History of Present Illness Time Seen by Provider: 12/12/17 17:50 Source: patient, family Exam Limitations: no limitations Physician History: 77 y/o female with history of CAD with bypass and DM sent from [facility] for shortness of breath and abnormal EKG. Pt admits to having worsening shortness of breath over the past 2 weeks. Pt arrives in new onset a fib with a rate fluctuating between 100-130. Pt also admits to bilateral leg swelling. Pt denies any chest pain, palpitations or dizziness. Timing/Duration: day(s) Activities at Onset: none Modifying Factors: Improves With: nothing Nitro Today/Relief: no nitro taken today Aspirin Treatment Today: no aspirin today Associated Symptoms: shortness of breath Prior Chest Pain/Cardiac Workup: heart attack Allergies/Adverse Reactions: zolpidem tartrate [From Ambien] Allergy (Verified 06/26/17 13:45) Home Medications: Alprazolam 1 mg [Xanax 1 mg] 1 mg PO TID 05/24/15 [History] Amlodipine Besylate 10 mg [Norvasc 10 MG] 10 mg PO DAILY 05/24/15 [History] Aspirin 81 gm Chew [Baby Aspirin 81 mg Chew] 81 mg PO BID 05/24/15 [ History] Clopidogrel Bisulfate 75 mg [PLAVIX 75 MG Tablet] 75 mg PO DAILY 05/24/15 [History] Ergocalciferol (Vitamin D2) [Vitamin D] 50,000 unit PO WEEKLY 05/24/15 [History] Fenofibrate,Micronized 145 mg* [Tricor 145 MG] 145 mg PO DAILY 05/24/15 [ History] Furosemide 1 tab PO BID 05/24/15 [History] Insulin Glargine [Lantus Insulin] 6 unit SQ HS 05/24/15 [History] Magnesium Oxide 400 mg [Mag-Ox 400] 400 mg PO BID 05/24/15 [History] Metoprolol Tartrate 50 mg PO DAILY 05/24/15 [History] Oxycodone HCl Cr 40 mg [Oxycontin 40 mg ER] 40 mg PO BID 05/24/15 [History ] PANTOPRAZOLE 40 mg Tablet [Protonix 40MG Tablet] 40 mg PO BID 05/24/15 [ History] Pravastatin Sodium 20 mg PO HS 05/24/15 [History] Allopurinol 100 mg [Zyloprim 100 mg] 100 mg PO BID 05/11/17 [History] Potassium Chloride 10 Meq Tab* [Klor Con 10 MEQ] 10 meq PO BID 05/11/17 [ History] Hx Tetanus, Diphtheria Vaccination/Date Given: Yes Hx Influenza Vaccination/Date Given: Yes Hx Pneumococcal Vaccination/Date Given: Yes - Review of Systems Constitutional: No Fever, No Chills Eyes: No Symptoms Ears, Nose, & Throat: No Symptoms Respiratory: Dyspnea, Dyspnea on Exertion (FLANAGAN), No Cough Cardiac: Edema, No Chest Pain, No Syncope Abdominal/Gastrointestinal: No Abdominal Pain, No Nausea, No Vomiting, No Diarrhea Genitourinary Symptoms: No Dysuria Musculoskeletal: No Back Pain, No Neck Pain Skin: No Rash Neurological: No Dizziness, No Focal Weakness, No Sensory Changes Psychological: No Symptoms Endocrine: No Symptoms All Other Systems: Reviewed and Negative - Past Medical History Pertinent Past Medical History: Yes Neurological History: TIA ENT History: No Pertinent History Cardiac History: Coronary Artery Disease, High Cholesterol, Hypertension, Myocardial Infarction ([place]) Respiratory History: No Pertinent History Endocrine Medical History: Diabetes Type I Musculoskeletal History: Arthritis, Degenerative Disk Disease, Osteoarthritis GI Medical History: Gallbladder Disease, Hernia History: Other Psycho-Social History: Anxiety Female Reproductive Disorders: No Pertinent History Other Medical History: Kidney stones - Past Surgical History Past Surgical History: Yes Neuro Surgical History: No Pertinent History Cardiac: CABG Respiratory: No Pertinent History Gastrointestinal: Appendectomy, Cholecystectomy, Other Genitourinary: No Pertinent History Musculoskeletal: Orthopedic Surgery Female Surgical History: Hysterectomy Other Surgical History: Colonoscopy, STENT PUT IN ARTERY IN STOMACH. bilat. knee replacement - Social History Smoking Status: Never smoker How long have you smoked: 2 MONTHS Exposure to second hand smoke: No Drug Use: none Patient Lives Alone: No - Nursing Vital Signs Nursing Vital Signs: Initial Vital Signs Temperature 97.5 F 12/12/17 17:40 Pulse Rate 118 H 12/12/17 17:40 Respiratory Rate 18 12/12/17 17:40 Blood Pressure 132/83 12/12/17 17:40 O2 Sat by Pulse Oximetry 98 12/12/17 17:40 Pain Scale Pain Intensity 0 - Physical Exam General Appearance: no apparent distress, alert Eye Exam: PERRL/EOMI, eyes nml inspection Ears, Nose, Throat Exam: normal ENT inspection, moist mucous membranes Neck Exam: normal inspection, non-tender, supple Respiratory Exam: normal breath sounds, lungs clear, No respiratory distress Cardiovascular Exam: regular rate/rhythm, normal heart sounds, No edema Gastrointestinal/Abdomen Exam: soft, No tenderness, No mass Back Exam: normal inspection, No CVA tenderness, No vertebral tenderness Extremity Exam: normal range of motion, pedal edema, swelling Neurologic Exam: alert, oriented x 3, cooperative, normal mood/affect, nml cerebellar function, sensation nml, No motor deficits Skin Exam: normal color, warm, dry Lymphatic Exam: No adenopathy SpO2: 98 Oxygen Delivery: Room Air - Course Nursing assessment & vital signs reviewed: Yes EKG Interpreted by Me: Chrissy Ordered Tests: Active Orders 24 hr Category Date Time Status Plate Grainer Apprentice STAT Care 12/12/17 17:52 Active EKG-ER Only STAT Care 12/12/17 17:51 Inactive Humphrey [Catheter-Alkol Humphrey] STAT Care 12/12/17 17:58 Active IV Insertion STAT Care 12/12/17 17:51 Inactive MAGNESIUM Stat Lab 12/12/17 18:10 Received PROTIME WITH INR Stat Lab 12/12/17 17:51 Ordered PTT Stat Lab 12/12/17 17:51 Ordered TROPONIN Q3H Lab 12/12/17 18:10 Received TROPONIN Q3H Lab 12/12/17 21:00 Ordered TROPONIN Q3H Lab 12/13/17 00:00 Ordered TROPONIN Q3H Lab 12/13/17 03:00 Ordered TROPONIN Q3H Lab 12/13/17 06:00 Ordered TSH, 3RD Generation Stat Lab 12/12/17 18:10 Received Medication Summary Discontinued Medications Generic Name Dose Route Start Last Admin Trade Name Freq PRN Reason Stop Dose Admin Diltiazem HCl 10 mg 12/12/17 17:53 12/12/17 18:43 Cardizem Iv 50 Mg/10 Ml IV 12/12/17 17:54 10 mg STAT ONE Administration Diltiazem HCl Confirm 12/12/17 18:11 Cardizem Iv 50 Mg/10 Ml Administered 12/12/17 18:12 Dose 50 mg IV .STK-MED ONE Furosemide 40 mg 12/12/17 17:58 12/12/17 18:29 Lasix 40 Mg/4 Ml IV 12/12/17 17:59 40 mg STAT ONE Administration Furosemide Confirm 12/12/17 18:10 Lasix 40 Mg/4 Ml Administered 12/12/17 18:11 Dose 40 mg .ROUTE .STK-MED ONE - Progress Progress: improved Progress Note: 12/12/17 18:45 After being giving cardizem 10mg IV X 1 dose, patient is still in a fib but her rate is in the 90's. Awaiting troponin and coags. CXR showed bilateral effusions and the patient was also giving lasix 40mg IV X 1 dose with humphrey catheter. 12/12/17 18:53 Pt has been admitted to Dr Galeana for new onset a fib and new onset CHF - Departure Time of Disposition: 18:53 Departure Disposition: In-patient Admission Clinical Impression: CHF (congestive heart failure) Qualifiers: Heart failure type: unspecified Heart failure chronicity: acute Qualified Code( s): I50.9 - Heart failure, unspecified Atrial fibrillation Qualifiers: Atrial fibrillation type: unspecified Qualified Code(s): I48.91 - Unspecified atrial fibrillation Condition: Fair Critical Care Time: Yes Critical Care Time(excluding separately billable procedures): 30-74 minutes Referrals: MIKY IQBAL MD [Primary Care Provider] - Instructions: Heart Failure
[2017-12-12] MEDS ORDERED: Lasix 40 MG/4 ML ONE (18:10)
[2017-12-12 18:51] LABS: INR 1.18 (0.8-3.0)
[2017-12-12 18:53] LABS: PTT 30.7 SECONDS (25.3-37.0)
[2017-12-12 18:53] LABS: TROPONIN 0.027 ng/mL (0.000-0.034)
[2017-12-12 19:12] LABS: TSH, 3RD Generation 2.69 mIU/L (0.47-4.68)
[2017-12-13] MEDS: XANAX 1 MG PO SCH ×3 (00:05→22:04)
[2017-12-13 03:22] LABS: Hematocrit 30.2 % (35-47); Hemoglobin 9.8 gm/dl (12.0-16.0); Mean Corpuscular Hemoglobin 30.8 pg (26-32); Mean Corpuscular Hgb Concent. 32.5 g/dl (32-36); Mean Platelet Volume 10.4 fl (6-9.5); Platelet Count 219 K/mm3 (150-450); Red Blood Count 3.18 M/mm3 (4.1-5.4); Red Cell Distribution Width 16.6 % (11.5-14.0)
[2017-12-13 04:23] LABS: ANION GAP 14.2 MEQ/L (5-15); Creatinine 1 1.54 mg/dL (0.52-1.04); Potassium 3.2 mmol/L (3.5-5.1)
[2017-12-13] MEDS ORDERED: Cardizem IV 50 MG/10 ML IV ONE (05:23)
[2017-12-13] MEDS ORDERED: CARDIZEM DRIP 100 MG/100 ML D5W 100 ML IV PRN (05:24)
[2017-12-13] MEDS: Oxycontin 20 MG ER PO SCH ×2 (08:08→19:50)
--- NOTE | 2017-12-13 08:31 | PCM.HP ---
History of Present Illness - Chief Complaint Chief Complaint: CHF, new onset Afib History of Present Illness: is a 77 year old female pt of Dr. Kaur and Dr. Garcia who came to yesterday c/o 3 weeks of SOB. Was found to have an irregular rhythm; EKG showed probably afib. She was sent to ER and found to be in afib with rate in the 120s-130s. She was given her home medicines but continued to have elevated rate on med surg so was transferred to ICU in the night. She had some elevated troponins overnight but was asymptomatic, no chest pain. Pt notes that she has had several stents, unable to tell me exactly where and when (per Dr. Garcia has severe vascular disease but always reluctant to have any more procedures). He agrees with current management. This morning she denies shortness of breath. Is very nervous about getting her oxycontin on time. - Review of Systems Constitutional: No Fever Respiratory: Short Of Breath, No Cough Cardiac: No Chest Pain, No Syncope Musculoskeletal: Joint Pain (chronic) Psychological: Anxiety, No Suicidal Ideations, No Homicidal Ideations All Other Systems: Reviewed and Negative (poor historian) Medications & Allergies Home Medications: Home Medication List Alprazolam 1 mg [Xanax 1 mg] 1 mg PO TID 05/24/15 [History Confirmed 06/26] Amlodipine Besylate 10 mg [Norvasc 10 MG] 10 mg PO DAILY 05/24/15 [History Confirmed 06/26/17] Aspirin 81 gm Chew [Baby Aspirin 81 mg Chew] 81 mg PO BID 05/24/15 [ History Confirmed 06/26/17] Clopidogrel Bisulfate 75 mg [PLAVIX 75 MG Tablet] 75 mg PO DAILY 05/24/15 [History Confirmed 06/26/17] Ergocalciferol (Vitamin D2) [Vitamin D] 50,000 unit PO WEEKLY 05/24/15 [History Confirmed 06/26/17] Fenofibrate,Micronized 145 mg* [Tricor 145 MG] 145 mg PO DAILY 05/24/15 [ History Confirmed 06/26/17] Furosemide 1 tab PO BID 05/24/15 [History Confirmed 06/26/17] Insulin Glargine [Lantus Insulin] 6 unit SQ HS 05/24/15 [History Confirmed 06/26/17] Magnesium Oxide 400 mg [Mag-Ox 400] 400 mg PO BID 05/24/15 [History Confirmed 06/26/17] Metoprolol Tartrate 50 mg PO DAILY 05/24/15 [History Confirmed 06/26/17] Oxycodone HCl Cr 40 mg [Oxycontin 40 mg ER] 40 mg PO BID 05/24/15 [ History Confirmed 06/26/17] PANTOPRAZOLE 40 mg Tablet [Protonix 40MG Tablet] 40 mg PO BID 05/24/15 [ History Confirmed 06/26/17] Pravastatin Sodium 20 mg PO HS 05/24/15 [History Confirmed 06/26/17] Allopurinol 100 mg [Zyloprim 100 mg] 100 mg PO BID 05/11/17 [History Confirmed 06/26/17] Cefdinir [Omnicef] 300 mg PO BID #14 capsule 05/11/17 [Rx Confirmed 06/26/17] Potassium Chloride 10 Meq Tab* [Klor Con 10 MEQ] 10 meq PO BID 05/11/17 [ History Confirmed 06/26/17] Allergies/Adverse Reactions: Allergies Allergy/AdvReac Type Severity Reaction Status Date / Time zolpidem tartrate Allergy Verified 06/26/17 13:45 [From Ambien] - Past Medical History Past Medical History: Yes Neurological History: TIA ENT History: No Pertinent History Cardiac History: Coronary Artery Disease, High Cholesterol, Hypertension, Myocardial Infarction ([place]) Respiratory History: No Pertinent History Endocrine Medical History: Diabetes Type I Musculoskelatal History: Arthritis, Degenerative Disk Disease, Osteoarthritis GI Medical History: Gallbladder Disease, Hernia History: Other Pyscho-Social History: Anxiety Reproductive Disorders: No Pertinent History Comment: Kidney stones - Female History Are you now?: No - Past Surgical History Past Surgical History: Yes Neuro Surgical History: No Pertinent History Cardiac History: CABG Respiratory Surgery: No Pertinent History GI Surgical History: Appendectomy, Cholecystectomy, Other Genitourinary Surgical Hx: No Pertinent History Musculskeletal Surgical Hx: Orthopedic Surgery Female Surgical History: Hysterectomy Other Surgical History: Colonoscopy, STENT PUT IN ARTERY IN STOMACH. bilat. knee replacement - Social History Smoking Status: Never smoker How long have you smoked: 2 MONTHS Exposure to second hand smoke: No Alcohol: None Drug Use: none - Physical Exam Vital Signs: Vital Signs - 24 hr Temp Pulse Resp BP Pulse Ox 12/13/17 04:00 98.4 F 101 H 18 121/77 93 L 12/13/17 00:00 98.7 F 116 H 17 139/68 94 L 12/12/17 23:20 95 12/12/17 22:00 98.4 F 117 H 18 140/78 95 12/12/17 20:08 105 H 18 137/97 98 12/12/17 18:55 98 12/12/17 18:53 108 H 20 134/71 97 12/12/17 17:51 22 95 12/12/17 17:40 97.5 F 118 H 18 132/83 98 Oxygen-Last 24 hours O2 Percentage 4 Liters = 36% General Appearance: no apparent distress, anxiety Neurologic Exam: oriented x 3, cooperative Eye Exam: eyes nml inspection Neck Exam: normal inspection, non-tender, supple, No lymphadenopathy Respiratory Exam: normal breath sounds, lungs clear, crackles/rales (bibasilar) , No rhonchi, No wheezing Cardiovascular Exam: regular rate/rhythm, normal heart sounds, No murmur Gastrointestinal/Abdomen Exam: soft, normal bowel sounds, No tenderness, No distention, No mass, No guarding, No rebound Extremity Exam: normal inspection, No pedal edema, No swelling Skin Exam: normal color, warm, dry, No rash Results - Labs Lab/Micro Results: Lab Results-Last 24 Hours 12/12/17 12/13/17 12/13/17 Range/Units 21:06 00:24 03:19 WBC (4.0-10.5) K/mm3 RBC (4.1-5.4) M/mm3 Hgb (12.0-16.0) gm/dl Hct (35-47) % MCV (78-100) fl MCH (26-32) pg MCHC (32-36) g/dl RDW (11.5-14.0) % Plt Count (150-450) K/mm3 MPV (6-9.5) fl Sodium (137-145) mmol/L Potassium (3.5-5.1) mmol/L Chloride (98-107) mmol/L Carbon Dioxide (22-30) mmol/L Anion Gap (5-15) MEQ/L BUN (7-17) mg/dL Creatinine (0.52-1.04) mg/dL Estimated GFR ML/MIN Glucose (74-106) mg/dL Calcium (8.4-10.2) mg/dL Troponin I 0.030 0.037 H* 0.045 H* (0.000-0.034) ng/mL NT-Pro-B Natriuret Pep (0-1800) pg/mL 12/13/17 12/13/17 12/13/17 Range/Units 03:19 03:19 05:58 WBC 7.0 (4.0-10.5) K/mm3 RBC 3.18 L (4.1-5.4) M/mm3 Hgb 9.8 L (12.0-16.0) gm/dl Hct 30.2 L (35-47) % MCV 95.0 (78-100) fl MCH 30.8 (26-32) pg MCHC 32.5 (32-36) g/dl RDW 16.6 H (11.5-14.0) % Plt Count 219 (150-450) K/mm3 MPV 10.4 H (6-9.5) fl Sodium 141 (137-145) mmol/L Potassium 3.2 L (3.5-5.1) mmol/L Chloride 99 (98-107) mmol/L Carbon Dioxide 31 H (22-30) mmol/L Anion Gap 14.2 (5-15) MEQ/L BUN 42 H (7-17) mg/dL Creatinine 1.54 H (0.52-1.04) mg/dL Estimated GFR 35 ML/MIN Glucose 70 L (74-106) mg/dL Calcium 9.0 (8.4-10.2) mg/dL Troponin I 0.045 H* (0.000-0.034) ng/mL NT-Pro-B Natriuret Pep 9840 H (0-1800) pg/mL - Radiology Impressions Radiology Exams & Impressions: Radiology Procedures Category Date Time Status ECHO W/2D AND DOPPLER [US] Routine Exams 12/13/17 Ordered - Other Procedures and Tests Respiratory Therapy 12/12/17 18:56 Oxygen NASAL CANNULA 2 lpm Assessment/Plan (1) Atrial fibrillation Current Visit: Yes Status: Acute Qualifiers: Atrial fibrillation type: unspecified Qualified Code(s): I48.91 - Unspecified atrial fibrillation Assessment & Plan: New onset. Dr. Garcia agrees with rate control and anticoagulation. After echocardiogram will choose a po anticoagulant. Code(s): I48.91 - UNSPECIFIED ATRIAL FIBRILLATION (2) Hypokalemia Current Visit: Yes Status: Acute Assessment & Plan: starting po potassium. Code(s): E87.6 - HYPOKALEMIA (3) CHF (congestive heart failure) Current Visit: Yes Status: Acute Qualifiers: Heart failure type: unspecified Heart failure chronicity: acute Qualified Code(s): I50.9 - Heart failure, unspecified Assessment & Plan: due to new onset afib. echo today. clinically she is improved. 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 accuchecks. Code(s): E11.9 - TYPE 2 DIABETES MELLITUS WITHOUT COMPLICATIONS
[2017-12-13] MEDS ORDERED: NovoLOG Insulin SQ PRN (08:36)
[2017-12-13] MEDS ORDERED: Lasix 40 MG/4 ML IV SCH ×2 (10:00)
[2017-12-13] MEDS ORDERED: OXYCONTIN 40 MG PO SCH (10:00)
[2017-12-13] MEDS ORDERED: ENOXAPARIN SODIUM SQ SCH (10:00)
[2017-12-13] MEDS: Klor Con 10 MEQ PO SCH ×2 (10:05→22:04)
[2017-12-13] MEDS: ENOXAPARIN SODIUM SQ SCH (10:13)
[2017-12-13] MEDS: NORVASC 5 MG PO SCH (14:18)
[2017-12-13] MEDS: PLAVIX 75 MG Tablet PO SCH (14:18)
[2017-12-13] MEDS: Tricor 145 MG PO SCH (14:18)
[2017-12-13] MEDS: Toprol-Xl 25MG Tablets PO SCH (14:18)
[2017-12-13] MEDS: Lasix 40 MG PO SCH (17:26)
[2017-12-13] MEDS ORDERED: ZOCOR 20MG PO SCH (22:00)
[2017-12-13] MEDS ORDERED: NON-FORMULARY ITEM (Pravastatin Sodium [Pravastatin Sodium] 20 MG) PO SCH (22:00)
[2017-12-13] MEDS: ZYLOPRIM 100 MG PO SCH (22:04)
[2017-12-13] MEDS: Protonix 40MG Tablet PO SCH (22:04)
[2017-12-13] MEDS: MAG-OX 400 PO SCH (22:04)
[2017-12-13] MEDS: Cardizem CD 120 MG PO SCH (23:46)
[2017-12-14] MEDS: Oxycontin 20 MG ER PO SCH (07:41)
--- NOTE | 2017-12-14 08:10 | ECHO ---
DATE OF PROCEDURE: 12/13/2017 CLINICAL INFORMATION: New onset atrial fibrillation. The M-mode 2D, and Doppler echocardiogram including color flow Doppler shows normal contractility of the left ventricle. There is mitral valve leaflet thickening and calcification. There sacroiliac decreased leaflet motion involving the mitral valve. The mitral valve area is calculated to be 2.5 sq/cm consistent with mild mitral stenosis. There is mild to moderate mitral regurgitation present. The right ventricle appears to be normal in size and function. The left atrium is borderline dilated at 4.1 cm. The interatrial septum is intact. The right atrium is mildly dilated. The aortic valve opens well. There is mild to moderate aortic regurgitation present. There is mild to moderate mitral regurgitation present. There is mild to moderate tricuspid regurgitation. The right ventricular systolic pressure is elevated at 45 mm of Mercury consistent with moderate pulmonary hypertension. The pulmonic valve is not well visualized. The aortic root is normal at 3.4 cm. There is no pericardial effusion present. IMPRESSION: 1) NORMAL CONTRACTILITY OF THE LEFT VENTRICLE. 2) MODERATE CONCENTRIC LEFT VENTRICULAR HYPERTROPHY. 3) MILD MITRAL STENOSIS ASSOCIATED WITH MILD TO MODERATE MITRAL REGURGITATION. 4) MILD TO MODERATE AORTIC REGURGITATION. 5) MILD TO MODERATE TRICUSPID REGURGITATION. 6) MODERATE PULMONARY HYPERTENSION. 7) BORDERLINE LEFT ATRIAL DILATATION.
[2017-12-14] MEDS: XANAX 1 MG PO SCH (09:15)
[2017-12-14] MEDS: Klor Con 10 MEQ PO SCH (09:15)
[2017-12-14] MEDS: MAG-OX 400 PO SCH (09:15)
[2017-12-14] MEDS: Toprol-Xl 25MG Tablets PO SCH (09:15)
[2017-12-14] MEDS: NORVASC 5 MG PO SCH (09:15)
[2017-12-14] MEDS: Protonix 40MG Tablet PO SCH (09:15)
[2017-12-14] MEDS: Cardizem CD 120 MG PO SCH (09:15)
[2017-12-14] MEDS: ENOXAPARIN SODIUM SQ SCH (09:15)
[2017-12-14] MEDS: PLAVIX 75 MG Tablet PO SCH (09:15)
[2017-12-14] MEDS: Lasix 40 MG PO SCH (09:15)
[2017-12-14] MEDS: ZYLOPRIM 100 MG PO SCH (09:18)
[2017-12-14] MEDS: Tricor 145 MG PO SCH (09:18)
[2017-12-14 12:15] VITALS: PULSE 86
[2017-12-14 12:16] VITALS: BP 122/58; O2SAT 98
--- NOTE | 2017-12-14 13:17 | PCM.DS ---
Discharge Summary Date of Admission: 12/12/17 20:45 Admitting Physician: ULISES ANDINO Primary Care Provider: ULISES ANDINO Allergies Allergies zolpidem tartrate [From Ambien] Allergy (Verified 06/26/17 13:45) Hospital Summary - Hospital Course Hospital Course: Pt went to [facility] for SOB, was noted to be tachycardic with irregular HR so was sent for bloodwork, CXR, and EKG which showed probable afib. She went to ER and was found to be in afib. Admitted and put on cardizem drip - changed to po cardizem with rate in the 70s-90s. She is feeling good. I did speak with Dr. Garcia as she is on plavix from previous stents years ago. S topping plavix and starting pt on xarelto. - Vitals & Intake/Output Vital Signs: Vital Signs Temperature 98.2 F 12/14/17 12:15 Pulse Rate 86 12/14/17 12:15 Respiratory Rate 18 12/14/17 12:15 Blood Pressure 122/58 12/14/17 12:15 O2 Sat by Pulse Oximetry 98 12/14/17 12:15 Oxygen-Last Documented O2 Percentage 4 Liters = 36% Intake & Output: Intake & Output 12/12/17 12/13/17 12/14/17 12/15/17 11:59 11:59 11:59 11:59 Intake Total 745 1837 Output Total 3550 5767 Balance -3043 -7715 Weight 65.9 kg 59.6 kg - Lab Result Diagrams: 12/13/17 03:19 12/13/17 03:19 Lab Results-Last 24 Hrs: Accuchecks Date 12/14/17 Date 12/14/17 Date 12/13/17 Time 11:30 Time 07:52 Time 22:00 Accucheck Value: 119 Accucheck Value: 94 Accucheck Value: 138 Accucheck Value: 122 Lab Results-Last 24 Hours 12/13/17 Range/Units Unknown Hemoglobin A1c 5.66 (4.5-6.0) % Micro Results-Entire Visit: Accuchecks Date 12/14/17 Date 12/14/17 Date 12/13/17 Time 11:30 Time 07:52 Time 22:00 Accucheck Value: 119 Accucheck Value: 94 Accucheck Value: 138 Accucheck Value: 122 - Radiology Exams Ordered Rad Exams-Entire Visit: Radiology Procedures Category Date Time Status ECHO W/2D AND DOPPLER [US] Routine Exams 12/13/17 10:47 Completed - Procedures and Test Procedures and Tests throughout Hospitalization: Therapy Orders & Screens 12/12/17 18:56 Oxygen NASAL CANNULA 2 lpm Comment: Diagnosis: CHF Discharge Exam General Appearance: no apparent distress, alert Neurologic Exam: oriented x 3, cooperative Skin Exam: normal color, warm, dry, No rash Neck Exam: normal inspection Respiratory Exam: normal breath sounds, lungs clear, No crackles/rales, No rhonchi, No wheezing Cardiovascular Exam: regular rate/rhythm, normal heart sounds, No murmur Extremity Exam: normal inspection, No pedal edema, No swelling Final Diagnosis/Problem List - Final Discharge Diagnosis/Problem (1) Atrial fibrillation Current Visit: Yes Status: Acute Assessment & Plan: rate controlled. f/u in 1 wk. (2) Hypokalemia Current Visit: Yes Status: Resolved (3) CHF (congestive heart failure) Current Visit: Yes Status: Acute Assessment & Plan: acute on chronic, improved here on IV lasix. home on home dose. echo report pending. (4) Diabetes Current Visit: No Status: Chronic - Discharge Disposition: Home, Self-Care Condition: Stable Prescriptions: New Diltiazem HCl 120 mg [Cardizem CD 120 MG] 120 mg PO DAILY #30 cap.sr.24h Rivaroxaban [Xarelto] 20 mg PO DAILY #30 tablet Continue Magnesium Oxide 400 mg [Mag-Ox 400] 400 mg PO BID Amlodipine Besylate 10 mg [Norvasc 10 MG] 10 mg PO DAILY Fenofibrate,Micronized 145 mg* [Tricor 145 MG] 145 mg PO DAILY Oxycodone HCl Cr 40 mg [Oxycontin 40 mg ER] 40 mg PO BID Alprazolam 1 mg [Xanax 1 mg] 1 mg PO BID PANTOPRAZOLE 40 mg Tablet [Protonix 40MG Tablet] 40 mg PO BID Allopurinol 100 mg [Zyloprim 100 mg] 100 mg PO BID Potassium Chloride 10 Meq Tab* [Klor Con 10 MEQ] 10 meq PO 5XD Furosemide 40 mg [Lasix 40 MG] 40 mg PO BID Metoprolol Succinate 1 tab PO DAILY Pravastatin Sodium 20 mg PO HS Discontinued Clopidogrel Bisulfate 75 mg [PLAVIX 75 MG Tablet] 75 mg PO DAILY Follow up with: ULISES ANDINO [Primary Care Provider] - 1 Week
== END 2017-12-14 13:30 | disposition home or self-care (01) | DRG 309 ==
LOC: ED 17:13 → MED SURG 20:45 → ICU 12-13 05:35
PROVIDERS: ADMIT Family Medicine; ATTEND Family Medicine
DX: I48.91 Unspecified atrial fibrillation (principal); I25.810 Atherosclerosis of coronary artery bypass graft(s) without angina pectoris; E87.6 Hypokalemia; I50.9 Heart failure, unspecified; E11.51 Type 2 diabetes mellitus with diabetic peripheral angiopathy without gangrene; Z79.4 Long term (current) use of insulin; E10.9 Type 1 diabetes mellitus without complications; E78.00 Pure hypercholesterolemia, unspecified; Z86.73 Personal history of transient ischemic attack (TIA), and cerebral infarction without residual deficits; I10 Essential (primary) hypertension; I25.2 Old myocardial infarction; M19.90 Unspecified osteoarthritis, unspecified site; M79.89 Other specified soft tissue disorders; Z79.899 Other long term (current) drug therapy; F41.9 Anxiety disorder, unspecified; Z87.442 Personal history of urinary calculi
CPT/HCPCS: 36000; 36415; 51702; 71046; 80048; 82962; 83036; 83735; 83880; 84443; 84484; 85025; 85027; 85610; 85730; 87086; 93005; 93041; 93306; 94760; 96365; 99285; J1650; J1940; A9270-GY

== ENCOUNTER 2017-12-20 18:12 | Observation (INO) | payer MEDICARE, OTHER ==
[2017-12-20] MEDS ORDERED: PROVENTIL 2.5 MG/3 ML NEB IH ONE ×2 (18:14→18:42)
--- NOTE | 2017-12-20 18:20 | ERPHSYRPT ---
- History of Present Illness Time Seen by Provider: 12/20/17 18:14 Source: patient, family Physician History: CC: short of air Hx: 77 y/o patient of Dr Galeana. She had recent admission for atrial fibrillation and chf. She went home on anticoagulant and rate control. She has continued dyspnea, some orthopena, worsened FLANAGAN. Breathing worse today with some wheezing. No chest pain, fever or chills. No abd pain. No V/D. Timing/Duration: day(s) (few days, worse) Severity of Dyspnea-Max: moderate Severity of Dyspnea-Current: moderate Allergies/Adverse Reactions: zolpidem tartrate [From Ambien] Allergy (Verified 12/20/17 19:03) Home Medications: Alprazolam 1 mg [Xanax 1 mg] 1 mg PO BID 05/24/15 [History] Amlodipine Besylate 10 mg [Norvasc 10 MG] 10 mg PO DAILY 05/24/15 [History] Fenofibrate,Micronized 145 mg* [Tricor 145 MG] 145 mg PO DAILY 05/24/15 [ History] Magnesium Oxide 400 mg [Mag-Ox 400] 400 mg PO BID 05/24/15 [History] Oxycodone HCl Cr 40 mg [Oxycontin 40 mg ER] 40 mg PO BID 05/24/15 [History ] PANTOPRAZOLE 40 mg Tablet [Protonix 40MG Tablet] 40 mg PO BID 05/24/15 [ History] Allopurinol 100 mg [Zyloprim 100 mg] 100 mg PO BID 05/11/17 [History] Potassium Chloride 10 Meq Tab* [Klor Con 10 MEQ] 10 meq PO 5XD 05/11/17 [ History] Furosemide 40 mg [Lasix 40 MG] 40 mg PO BID 12/13/17 [History] Metoprolol Succinate 1 tab PO DAILY 12/13/17 [History] Pravastatin Sodium 20 mg PO HS 12/13/17 [History] Hx Tetanus, Diphtheria Vaccination/Date Given: Yes Hx Influenza Vaccination/Date Given: Yes Hx Pneumococcal Vaccination/Date Given: Yes - Review of Systems Constitutional: Fatigue, Malaise, Weakness, No Fever, No Chills Eyes: No Symptoms Ears, Nose, & Throat: No Symptoms Respiratory: Dyspnea, Dyspnea on Exertion (FLANAGAN), Wheezing, No Cough Cardiac: No Chest Pain, No Syncope Abdominal/Gastrointestinal: No Abdominal Pain, No Nausea, No Vomiting, No Diarrhea Skin: No Rash Neurological: No Headache All Other Systems: Reviewed and Negative - Past Medical History Pertinent Past Medical History: Yes Neurological History: TIA ENT History: No Pertinent History Cardiac History: Coronary Artery Disease, High Cholesterol, Hypertension, Myocardial Infarction ([place]) Respiratory History: No Pertinent History Endocrine Medical History: Diabetes Type I Musculoskeletal History: Arthritis, Degenerative Disk Disease, Osteoarthritis GI Medical History: Gallbladder Disease, Hernia History: Other Psycho-Social History: Anxiety Female Reproductive Disorders: No Pertinent History Other Medical History: Kidney stones - Past Surgical History Past Surgical History: Yes Neuro Surgical History: No Pertinent History Cardiac: CABG Respiratory: No Pertinent History Gastrointestinal: Appendectomy, Cholecystectomy, Other Genitourinary: No Pertinent History Musculoskeletal: Orthopedic Surgery Female Surgical History: Hysterectomy Other Surgical History: Colonoscopy, STENT PUT IN ARTERY IN STOMACH. bilat. knee replacement - Social History Smoking Status: Never smoker How long have you smoked: 2 MONTHS Exposure to second hand smoke: No Drug Use: none Patient Lives Alone: No - Nursing Vital Signs Nursing Vital Signs: Initial Vital Signs Temperature 99.0 F 12/20/17 18:38 Pulse Rate 93 H 12/20/17 18:38 Respiratory Rate 18 12/20/17 18:38 Blood Pressure 132/86 12/20/17 18:38 O2 Sat by Pulse Oximetry 96 12/20/17 18:38 Pain Scale Pain Intensity 3 - Physical Exam General Appearance: alert, other (breathless on arrival) Eye Exam: PERRL/EOMI Neck Exam: normal inspection, non-tender, supple Respiratory Exam: diminished breath sounds, crackles/rales Cardiovascular/Chest Exam: murmur, irregular Abdominal/Gastrointestinal Exam: soft, No tenderness, No distention Extremity Exam: no calf tenderness, pedal edema (r>l) Neurologic Exam: alert, oriented x 3, cooperative, sensation nml, No motor deficits Skin Exam: warm, dry, No rash SpO2 Interpretation: normal SpO2: 98 Oxygen Delivery: Nasal Cannula - Course Nursing assessment & vital signs reviewed: Yes EKG Interpreted by Me: RATE (95), A-fib, NORMAL INTERVALS (QTc 426), Q-wave ( septal), Non-specific ST Changes - Radiology Exams cxr X-ray Interpretation: Reviewed by me (CM, post sternotomy, ?left base infiltrate ) Ordered Tests: Active Orders 24 hr Category Date Time Status Waiter/Waitress Dining Car STAT Care 12/20/17 18:15 Active Catheter-[place] Pop STAT Care 12/20/17 18:14 Active EKG-ER Only STAT Care 12/20/17 18:14 Active IV Insertion STAT Care 12/20/17 18:14 Active Oxygen-ED Only NASAL CANNULA 2 lpm Care 12/20/17 18:14 Active CHEST 1 VIEW (PORTABLE) Stat Exams 12/20/17 18:15 Taken CBC W DIFF Stat Lab 12/20/17 18:25 Completed CMP Stat Lab 12/20/17 18:25 Completed Lactic Acid Stat Lab 12/20/17 18:49 Completed MAGNESIUM Stat Lab 12/20/17 18:25 Completed NT PRO BNP Stat Lab 12/20/17 18:25 Completed TROPONIN Q3H Lab 12/20/17 18:25 Completed TROPONIN Q3H Lab 12/20/17 21:15 Ordered TROPONIN Q3H Lab 12/21/17 00:15 Ordered TROPONIN Q3H Lab 12/21/17 03:15 Ordered TROPONIN Q3H Lab 12/21/17 06:15 Ordered UA W/RFX UR CULTURE Stat Lab 12/20/17 18:15 Completed VENOUS BLOOD GAS Stat Lab 12/20/17 18:49 Completed Respiratory Nebulizer STAT RT 12/20/17 18:15 Completed Medication Summary Generic Name Dose Route Start Last Admin Trade Name Freq PRN Reason Stop Dose Admin Furosemide 20 mg 12/20/17 20:24 Lasix 40 Mg/4 Ml IV 12/20/17 20:25 STAT ONE Discontinued Medications Generic Name Dose Route Start Last Admin Trade Name Freq PRN Reason Stop Dose Admin Albuterol Sulfate 2.5 mg 12/20/17 18:14 12/20/17 18:44 Proventil 2.5 Mg/3 Ml Neb IH 12/20/17 18:15 2.5 mg STAT ONE Administration Albuterol Sulfate Confirm 12/20/17 18:42 Proventil 2.5 Mg/3 Ml Neb Administered 12/20/17 18:43 Dose 2.5 mg IH .STK-MED ONE Lab/Rad Data: Laboratory Result Diagrams 12/20/17 18:25 12/20/17 18:25 Laboratory Results 12/20/17 12/20/17 12/20/17 Range/Units 18:49 18:25 18:25 WBC (4.0-10.5) K/mm3 RBC (4.1-5.4) M/mm3 Hgb (12.0-16.0) gm/dl Hct (35-47) % MCV (78-100) fl MCH (26-32) pg MCHC (32-36) g/dl RDW (11.5-14.0) % Plt Count (150-450) K/mm3 MPV (6-9.5) fl Gran % (36.0-66.0) % Eos # (Auto) (0-0.5) Absolute Lymphs (auto) (1.0-4.6) Absolute Monos (auto) (0.0-1.3) Lymphocytes % (24.0-44.0) % Monocytes % (0.0-12.0) % Eosinophils % (0.00-5.0) % Basophils % (0.0-0.4) % Absolute Granulocytes (1.4-6.9) Basophils # (0-0.4) pO2/FiO2 Ratio 24.0 % VBG pH 7.43 H (7.32-7.42) VBG pCO2 at Pat Temp 44 (42-55) mm/Hg VBG pO2 at Pat Temp 39 (25-40) mm/Hg VBG HCO3 29.2 H* (22-28) meq/L VBG O2 Sat (Gildardo) 76.7 L (95-100) VBG Base Excess 4.3 H (-2.0-2.0) VBG Hemoglobin 10.5 VBG Carboxyhemoglobin 2.2 (0.0-6.9) % T HGB POC Potassium 5.2 H (3.5-5.1) Sodium 132 L (137-145) mmol/L Potassium 4.6 (3.5-5.1) mmol/L Chloride 92 L (98-107) mmol/L Carbon Dioxide 27 (22-30) mmol/L Anion Gap 17.0 H (5-15) MEQ/L BUN 60 H (7-17) mg/dL Creatinine 1.96 H (0.52-1.04) mg/dL Estimated GFR 26.4 ML/MIN Glucose 143 H (74-106) mg/dL Lactic Acid 1.0 (0.4-2.0) Calcium 9.5 (8.4-10.2) mg/dL Magnesium 2.1 (1.6-2.3) mg/dL Total Bilirubin 1.00 (0.2-1.3) mg/dL AST 37 H (14-36) U/L ALT 16 (0-35) U/L Alkaline Phosphatase 110 (38-126) U/L Troponin I 0.029 (0.000-0.034) ng/mL NT-Pro-B Natriuret Pep 25619 H (0-1800) pg/mL Serum Total Protein 7.3 (6.3-8.2) g/dL Albumin 4.1 (3.5-5.0) g/dL Ur Collection Type Urine Color (YELLOW) Urine Appearance (CLEAR) Urine pH (5-6) Ur Specific [place] (1.005-1.025) Urine Protein (Negative) Urine Ketones (NEGATIVE) Urine Blood (0-5) Jonathon/ul Urine Nitrite (NEGATIVE) Urine Bilirubin (NEGATIVE) Urine Urobilinogen (0-1) mg/dL Ur Leukocyte Esterase (NEGATIVE) Urine Culture Reflexed (NO) Urine Glucose (NEGATIVE) mg/dL Specimen Received 12/20/17 12/20/17 Range/Units 18:25 18:15 WBC 8.1 (4.0-10.5) K/mm3 RBC 3.35 L (4.1-5.4) M/mm3 Hgb 10.3 L (12.0-16.0) gm/dl Hct 31.2 L (35-47) % MCV 93.1 (78-100) fl MCH 30.7 (26-32) pg MCHC 33.0 (32-36) g/dl RDW 16.1 H (11.5-14.0) % Plt Count 231 (150-450) K/mm3 MPV 11.2 H (6-9.5) fl Gran % 77.0 H (36.0-66.0) % Eos # (Auto) 0.08 (0-0.5) Absolute Lymphs (auto) 0.99 L (1.0-4.6) Absolute Monos (auto) 0.77 (0.0-1.3) Lymphocytes % 12.3 L (24.0-44.0) % Monocytes % 9.5 (0.0-12.0) % Eosinophils % 1.0 (0.00-5.0) % Basophils % 0.2 (0.0-0.4) % Absolute Granulocytes 6.22 (1.4-6.9) Basophils # 0.02 (0-0.4) pO2/FiO2 Ratio % VBG pH (7.32-7.42) VBG pCO2 at Pat Temp (42-55) mm/Hg VBG pO2 at Pat Temp (25-40) mm/Hg VBG HCO3 (22-28) meq/L VBG O2 Sat (Gildardo) (95-100) VBG Base Excess (-2.0-2.0) VBG Hemoglobin VBG Carboxyhemoglobin (0.0-6.9) % T HGB POC Potassium (3.5-5.1) Sodium (137-145) mmol/L Potassium (3.5-5.1) mmol/L Chloride (98-107) mmol/L Carbon Dioxide (22-30) mmol/L Anion Gap (5-15) MEQ/L BUN (7-17) mg/dL Creatinine (0.52-1.04) mg/dL Estimated GFR ML/MIN Glucose (74-106) mg/dL Lactic Acid (0.4-2.0) Calcium (8.4-10.2) mg/dL Magnesium (1.6-2.3) mg/dL Total Bilirubin (0.2-1.3) mg/dL AST (14-36) U/L ALT (0-35) U/L Alkaline Phosphatase (38-126) U/L Troponin I (0.000-0.034) ng/mL NT-Pro-B Natriuret Pep (0-1800) pg/mL Serum Total Protein (6.3-8.2) g/dL Albumin (3.5-5.0) g/dL Ur Collection Type CLEAN CATCH Urine Color YELLOW (YELLOW) Urine Appearance CLEAR (CLEAR) Urine pH 7.5 (5-6) Ur Specific [place] 1.005 (1.005-1.025) Urine Protein NEGATIVE (Negative) Urine Ketones NEGATIVE (NEGATIVE) Urine Blood NEGATIVE (0-5) Jonathon/ul Urine Nitrite NEGATIVE (NEGATIVE) Urine Bilirubin NEGATIVE (NEGATIVE) Urine Urobilinogen NORMAL (0-1) mg/dL Ur Leukocyte Esterase NEGATIVE (NEGATIVE) Urine Culture Reflexed NO (NO) Urine Glucose NEGATIVE (NEGATIVE) mg/dL Specimen Received 12/20/175 - Progress Progress Note: 12/20/17 20:25 She is breathing easier after nebs and oxygen. 600ml urine diuresed. She appears to have some worsened failure. Called Dr Vincent Galeana and will place in obs tele. Counseled pt/family regarding: lab results, diagnosis, need for follow-up, rad results - Departure Time of Disposition: 20:27 Departure Disposition: Observation Clinical Impression: CHF (congestive heart failure), SOB (shortness of breath) Condition: Fair Critical Care Time: No Referrals: ULISES GALEANA [Primary Care Provider] - Instructions: Heart Failure
[2017-12-20 18:39] LABS: BASOPHIL % 0.2 % (0.0-0.4); Basophil (Absolute #) 0.02 (0-0.4); Eosinophil (Absolute #) 0.08 (0-0.5); Granulocyte Absolute (ANC) 6.22 (1.4-6.9); Hematocrit 31.2 % (35-47); Hemoglobin 10.3 gm/dl (12.0-16.0); Lymphocyte (Absolute #) 0.99 (1.0-4.6); Lymphocytes % 12.3 % (24.0-44.0); Mean Cell Volume 93.1 fl (78-100); Mean Corpuscular Hemoglobin 30.7 pg (26-32); Mean Platelet Volume 11.2 fl (6-9.5); Monocyte (Absolute #) 0.77 (0.0-1.3); Monocytes % 9.5 % (0.0-12.0); Platelet Count 231 K/mm3 (150-450); Red Blood Count 3.35 M/mm3 (4.1-5.4); Red Cell Distribution Width 16.1 % (11.5-14.0); White Blood Count 8.1 K/mm3 (4.0-10.5)
[2017-12-20 18:59] LABS: VBG BASE EXCESS 4.3 (-2.0-2.0); VBG CARBOXYHEMOGLOBIN 2.2 % T HGB (0.0-6.9); VBG HCO3- 29.2 meq/L (22-28); VBG HEMOGLOBIN 10.5; VBG O2 SATURATION 76.7 (95-100); VBG POTASSIUM 5.2 (3.5-5.1); VBG pH 7.43 (7.32-7.42)
[2017-12-20 19:05] LABS: ALBUMIN 4.1 g/dL (3.5-5.0); Calcium 9.5 mg/dL (8.4-10.2); Creatinine 1 1.96 mg/dL (0.52-1.04); Potassium 4.6 mmol/L (3.5-5.1); Total Protein 7.3 g/dL (6.3-8.2)
[2017-12-20 19:23] LABS: Appearance CLEAR (CLEAR); Specific Gravity 1.005 (1.005-1.025)
[2017-12-20 19:24] LABS: Bilirubin NEGATIVE (NEGATIVE); Blood NEGATIVE Ery/ul (0-5); Glucose NEGATIVE (NEGATIVE); Ketones NEGATIVE (NEGATIVE); Leukocyte Esterase NEGATIVE (NEGATIVE); Nitrite NEGATIVE (NEGATIVE); Ph 7.5 (5-6); Protein,Urine Dip NEGATIVE (Negative); Urobilinogen NORMAL mg/dL (0-1)
[2017-12-20] MEDS ORDERED: Lasix 40 MG/4 ML IV ONE (20:24)
[2017-12-20] MEDS ORDERED: Lasix 40 MG/4 ML ONE (20:30)
[2017-12-20] MEDS: Oxycontin 20 MG ER PO SCH (23:23)
[2017-12-20] MEDS: DUONEB 0.5-3 MG/3 ml Neb IH SCH (23:47)
[2017-12-21] MEDS: DUONEB 0.5-3 MG/3 ml Neb IH SCH ×6 (03:29→23:01)
[2017-12-21 05:07] LABS: Hematocrit 28.8 % (35-47); Hemoglobin 9.6 gm/dl (12.0-16.0); Mean Cell Volume 93.2 fl (78-100); Mean Corpuscular Hgb Concent. 33.3 g/dl (32-36); Mean Platelet Volume 11.2 fl (6-9.5); Platelet Count 200 K/mm3 (150-450); Red Blood Count 3.09 M/mm3 (4.1-5.4); Red Cell Distribution Width 16.1 % (11.5-14.0); White Blood Count 7.9 K/mm3 (4.0-10.5)
[2017-12-21 05:12] LABS: ANION GAP 14.2 MEQ/L (5-15); Calcium 9.2 mg/dL (8.4-10.2); Creatinine 1 1.94 mg/dL (0.52-1.04); Potassium 3.9 mmol/L (3.5-5.1)
--- NOTE | 2017-12-21 08:35 | PCM.NOTE ---
Date and Time: 12/21/17832 Subjective Assessment: doing ok today, still short of breath. no new complaints or concerns. Objective Exam General Appearance: no apparent distress, alert Respiratory Exam: crackles/rales, rhonchi Cardiovascular Exam: regular rate/rhythm, normal heart sounds Gastrointestinal/Abdomen Exam: soft, No tenderness, No mass Extremity Exam: normal inspection, normal range of motion OBJECTIVE DATA Vital Signs: Vital Signs - 24 hr Temp Pulse Resp BP Pulse Ox 12/21/17 07:35 97.7 F 121 H 22 135/71 99 12/21/17 06:49 90 20 96 12/21/17 04:00 98.6 F 99 H 22 130/60 96 12/21/17 03:29 77 20 98 12/20/17 23:47 102 H 20 93 L 12/20/17 23:41 98.7 F 126 H 20 157/77 98 12/20/17 23:07 98.7 F 126 H 20 157/77 98 12/20/17 21:30 99.0 F 98 H 137/79 98 12/20/17 20:27 98 12/20/17 19:12 96 H 18 122/69 99 12/20/17 18:45 85 19 97 12/20/17 18:38 99.0 F 93 H 20 132/86 96 Oxygen-Last 24 hours O2 Percentage 2 Liters = 28% O2 Percentage 2 Liters = 28% O2 Percentage 2 Liters = 28% O2 Percentage 2 Liters = 28% O2 Percentage 2 Liters = 28% O2 Percentage 2 Liters = 28% Pain Assessment - Last Documented Pain Intensity 0 Pain Scale Used 0-10 Pain Scale Intake and Output: Intake & Output 12/18/17 12/19/17 12/20/17 12/21/17 11:59 11:59 11:59 11:59 Intake Total 300 Output Total 1950 Balance -1650 Weight 64 kg Lab Results: Lab Results-Last 24 Hours 12/21/17 12/21/17 12/21/17 Range/Units 00:15 03:30 03:30 WBC 7.9 (4.0-10.5) K/mm3 RBC 3.09 L (4.1-5.4) M/mm3 Hgb 9.6 L (12.0-16.0) gm/dl Hct 28.8 L (35-47) % MCV 93.2 (78-100) fl MCH 31.0 (26-32) pg MCHC 33.3 (32-36) g/dl RDW 16.1 H (11.5-14.0) % Plt Count 200 (150-450) K/mm3 MPV 11.2 H (6-9.5) fl Sodium (137-145) mmol/L Potassium (3.5-5.1) mmol/L Chloride (98-107) mmol/L Carbon Dioxide (22-30) mmol/L Anion Gap (5-15) MEQ/L BUN (7-17) mg/dL Creatinine (0.52-1.04) mg/dL Estimated GFR ML/MIN Glucose (74-106) mg/dL Calcium (8.4-10.2) mg/dL Troponin I 0.036 H* 0.037 H* (0.000-0.034) ng/mL NT-Pro-B Natriuret Pep (0-1800) pg/mL 12/21/17 12/21/17 Range/Units 03:30 06:15 WBC (4.0-10.5) K/mm3 RBC (4.1-5.4) M/mm3 Hgb (12.0-16.0) gm/dl Hct (35-47) % MCV (78-100) fl MCH (26-32) pg MCHC (32-36) g/dl RDW (11.5-14.0) % Plt Count (150-450) K/mm3 MPV (6-9.5) fl Sodium 134 L (137-145) mmol/L Potassium 3.9 (3.5-5.1) mmol/L Chloride 95 L (98-107) mmol/L Carbon Dioxide 29 (22-30) mmol/L Anion Gap 14.2 (5-15) MEQ/L BUN 57 H (7-17) mg/dL Creatinine 1.94 H (0.52-1.04) mg/dL Estimated GFR 26.7 ML/MIN Glucose 121 H (74-106) mg/dL Calcium 9.2 (8.4-10.2) mg/dL Troponin I 0.045 H* (0.000-0.034) ng/mL NT-Pro-B Natriuret Pep 37377 H (0-1800) pg/mL Assessment/Plan (1) Systolic CHF, acute Current Visit: Yes Status: Acute Assessment & Plan: patient with some diuresis, await cardiology consult. hesitant to start weston with renal function. will await Dr Garcia recommendations. Code(s): I50.21 - ACUTE SYSTOLIC (CONGESTIVE) HEART FAILURE (2) Atrial fibrillation Current Visit: No Status: Acute Assessment & Plan: rate controlled and anticoagulated at this time Code(s): I48.91 - UNSPECIFIED ATRIAL FIBRILLATION (3) SOB (shortness of breath) Current Visit: Yes Status: Acute Code(s): R06.02 - SHORTNESS OF BREATH (4) Diabetes Current Visit: No Status: Chronic Qualifiers: Code(s): E11.9 - TYPE 2 DIABETES MELLITUS WITHOUT COMPLICATIONS
--- NOTE | 2017-12-21 08:37 | XRAY ---
Indication: Dyspnea. Comparison: December 12, 2017. Portable chest unchanged again demonstrating cardiomegaly, small bibasilar effusions/atelectasis, CABG surgery, and calcified granulomas. No new cardiopulmonary abnormalities.
--- NOTE | 2017-12-21 08:43 | XRAY ---
Indication: Slurred speech and facial droop. Multiple contiguous axial images obtained through the head without contrast. Comparison: June 26, 2017. Stable age-related global atrophy, mild periventricular degenerative micro-ischemia bilaterally, and remote left basal ganglia lacunar infarct. No acute intracranial hemorrhage, abnormal extra-axial fluid collection, or mass effect. Fourth ventricle is midline without hydrocephalus. Bony calvarium intact. Visualized paranasal sinuses and mastoid air cells are clear. Impression: Stable nonacute senile brain with remote left basal ganglia lacunar infarct. CT DI 64.95
--- NOTE | 2017-12-21 09:36 | HP ---
CHIEF COMPLAINT: Shortness of breath. HISTORY OF PRESENT ILLNESS: This patient is a 77 year-old female patient of myself who was recently admitted and cared for by Dr. Galeana with a history of coronary artery disease and peripheral vascular disease. She apparently was admitted with atrial fibrillation and congestive heart failure. She went home on anticoagulant and rate control. She has been more short of breath. Her daughter urged her to come in to seek treatment today after coming and seeing her for the first time in quite some time. She has had a major decline with some shortness of breath and wheezing. She has no pain in her chest. No fevers or chills. No paroxysmal nocturnal dyspnea or orthopnea. PAST MEDICAL HISTORY: Includes coronary artery disease, congestive heart failure, chronic kidney disease for which she follows with Dr. Delacruz. Diabetes mellitus type 2 recently taken off of insulin due to significant weight loss with her decline with continued normoglycemia of the medication. She also has chronic back pain. HOME MEDICATIONS: Includes Xanax 1 mg p.o. b.i.d., amlodipine 2 mg daily, Fenofibrate 145 mg daily, magnesium oxide 400 mg daily, OxyContin 40 mg p.o. b.i.d., Protonix 40 mg daily, Allopurinol 100 mg p.o. b.i.d., potassium chloride 10 mEq p.o. five times a day, Lasix 40 mg p.o. b.i.d., metoprolol succinate daily, pravastatin 20 mg at bedtime. She was recently started on Xarelto during her recent hospital stay. ALLERGIES: AMBIEN. PAST SURGICAL HISTORY: She had mesenteric ischemia with stent placement, coronary bypass grafting, cholecystectomy, appendectomy. SOCIAL HISTORY: She is a nonsmoker. She lives with her independently. No drug or alcohol use. FAMILY HISTORY: Noncontributory. REVIEW OF SYSTEMS: GENERAL: She has had weakness with recent falls. No fever or chills. CVS: No chest pain. She has some mild peripheral edema which is chronic. RESPIRATORY: She had some cough, shortness of breath and wheezing. GI: No nausea, vomiting, diarrhea or constipation. SKIN: No rashes. No lesions. : No dysuria, hesitancy or frequency. EXTREMITIES: She has trace edema lower extremities which is chronic. PHYSICAL EXAMINATION: She is alert, chronically ill appearing. VITAL SIGNS: Temperature 99F, pulse 93, respiratory rate 18, blood pressure 132/86. Oxygen saturation 98% on 2 liters. HEENT: Head - Normocephalic, atraumatic. Eyes - Pupils equal round and reactive to light and accommodation. Extra-ocular movements intact. NECK: Supple without lymphadenopathy. CVS: Irregularly irregular with no murmur. RESPIRATORY: She has some mild wheezing bilaterally, some mild crackles in the bases. ABDOMEN: Soft, nontender. EXTREMITIES: She has trace edema of lower extremities. NEUROLOGIC: She had some mildly dysarthric speech which is chronic. No gross focal neurological deficits are present. Moves bilateral upper and lower extremities equally. SKIN: [place], warm and dry. LAB DATA AND TESTS: EKG shows atrial fibrillation at rate of 95. Chest x-ray showed no obvious infiltrates. Lab data with hemoglobin 10.3, hematocrit 31.2, white blood cell count 8.1 and PLT count 231,000. Sodium 132, potassium 4.6, BUN 60, creatinine 1.96 which is slightly higher than baseline but overall it has ran in the 1.6 to 1.8 range chronically. ProBNP is 11,000 on arrival which is higher than previous admission of 9,800. UA is essentially negative. ASSESSMENT: Sydni has some mild congestive heart failure secondary to systolic function which is acute on chronic. On exam she seems fairly euvolemic although she does have markedly elevated ProBNP. I will admit for mild diuresis and obtain cardiology consultation with [place] as she normally sees Dr. Garcia. She had a CT of her head that is pending due to concern with anticoagulant usage from previous hospitalization and multiple falls reported by family. She does have bruising to the back. She denies falling and hitting her head today. In any event she will be admitted. She also has some wheezing on exam with possible concern with some bronchospasm component which we will treat with nebulizer treatments.
[2017-12-21] MEDS ORDERED: Cardizem CD 120 MG PO SCH (10:00)
[2017-12-21] MEDS ORDERED: Lasix 20 MG/2 ML IV SCH (10:00)
[2017-12-21] MEDS ORDERED: XANAX 1 MG PO SCH ×2 (10:00)
[2017-12-21] MEDS ORDERED: NON-FORMULARY ITEM (Rivaroxaban [Xarelto] 20 MG) PO SCH (10:00)
[2017-12-21] MEDS: Tricor 145 MG PO SCH (10:05)
[2017-12-21] MEDS: ZYLOPRIM 100 MG PO SCH ×2 (10:06→21:27)
[2017-12-21] MEDS: Lasix 20 MG/2 ML IV SCH ×2 (10:06→21:27)
[2017-12-21] MEDS: Toprol-Xl 25MG Tablets PO SCH (10:06)
[2017-12-21] MEDS: XARELTO 10 MG TABLET PO SCH (10:06)
[2017-12-21] MEDS: Protonix 40MG Tablet PO SCH ×2 (10:06→21:27)
[2017-12-21] MEDS: Oxycontin 20 MG ER PO SCH ×2 (10:06→21:27)
[2017-12-21] MEDS: MAG-OX 400 PO SCH ×2 (10:06→21:26)
[2017-12-21] MEDS: Klor Con 10 MEQ PO SCH ×4 (12:03→22:55)
[2017-12-21] MEDS: XANAX 1 MG PO PRN ×2 (15:51→21:27)
[2017-12-21] MEDS ORDERED: NON-FORMULARY ITEM (Pravastatin Sodium [Pravastatin Sodium] 20 MG) PO SCH (22:00)
[2017-12-21] MEDS ORDERED: ZOCOR 20MG PO SCH (22:00)
[2017-12-22] MEDS: DUONEB 0.5-3 MG/3 ml Neb IH SCH ×3 (03:32→11:05)
[2017-12-22] MEDS: XANAX 1 MG PO PRN ×2 (07:30→13:55)
[2017-12-22] MEDS: Klor Con 10 MEQ PO SCH ×3 (07:30→13:55)
--- NOTE | 2017-12-22 08:06 | PCM.NOTE ---
Date and Time: 12/22/17 0803 Subjective Assessment: doing well today, wants to go home. states her breathing is fine and she feels well. Objective Exam General Appearance: no apparent distress, alert Skin Exam: normal color, warm, dry Respiratory Exam: normal breath sounds, lungs clear, No respiratory distress Cardiovascular Exam: regular rate/rhythm, normal heart sounds Gastrointestinal/Abdomen Exam: soft, No tenderness, No mass OBJECTIVE DATA Vital Signs: Vital Signs - 24 hr Temp Pulse Resp BP Pulse Ox 12/22/17 07:00 83 18 96 12/22/17 04:15 98.3 F 113 H 20 137/81 95 12/22/17 03:00 110 H 22 97 12/22/17 00:20 98.0 F 100 H 22 139/71 97 12/21/17 23:02 107 H 20 96 12/21/17 20:00 98.2 F 87 22 125/78 97 12/21/17 18:45 82 20 91 L 12/21/17 16:00 97.5 F 90 20 122/65 96 12/21/17 12:00 97.6 F 97 H 18 132/72 97 12/21/17 11:28 87 14 95 Oxygen-Last 24 hours O2 Percentage 2 Liters = 28% O2 Percentage 2 Liters = 28% O2 Percentage 2 Liters = 28% O2 Percentage 1 Liter = 24% O2 Percentage 2 Liters = 28% Pain Assessment - Last Documented Pain Intensity 0 Pain Scale Used FLACC Intake and Output: Intake & Output 12/19/17 12/20/17 12/21/17 12/22/17 11:59 11:59 11:59 11:59 Intake Total 300 440 Output Total 1950 650 Balance -1650 -210 Weight 64 kg 65.2 kg Lab Results: Lab Results-Last 24 Hours 12/21/17 Range/Units 06:15 Troponin I 0.045 H* (0.000-0.034) ng/mL Assessment/Plan (1) Systolic CHF, acute Current Visit: Yes Status: Acute Onset Date: ~12/20/17 Assessment & Plan: repeat labs this am, telecardiology consult pending Code(s): I50.21 - ACUTE SYSTOLIC (CONGESTIVE) HEART FAILURE (2) Atrial fibrillation Current Visit: Yes Status: Acute Onset Date: ~12/20/17 Assessment & Plan: on po cardizem and metoprolol, rate low 100's at times. will increase cardizem CD from 120 to 180mg daily, continue toprol xl 25mg daily. continue xarelto and awaiting cardiology further recommendations, has been diuresed mildly during stay but appears euvolemic at this time clinically. Code(s): I48.91 - UNSPECIFIED ATRIAL FIBRILLATION (3) SOB (shortness of breath) Current Visit: Yes Status: Acute Onset Date: ~12/20/17 Code(s): R06.02 - SHORTNESS OF BREATH (4) Diabetes Current Visit: No Status: Chronic Qualifiers: Code(s): E11.9 - TYPE 2 DIABETES MELLITUS WITHOUT COMPLICATIONS
[2017-12-22 08:39] LABS: BASOPHIL % 0.5 % (0.0-0.4); Basophil (Absolute #) 0.04 (0-0.4); Eosinophil (Absolute #) 0.08 (0-0.5); Granulocyte Absolute (ANC) 6.23 (1.4-6.9); Granulocytes % 75.6 % (36.0-66.0); Hematocrit 29.7 % (35-47); Hemoglobin 9.7 gm/dl (12.0-16.0); Lymphocyte (Absolute #) 0.97 (1.0-4.6); Lymphocytes % 11.8 % (24.0-44.0); Mean Cell Volume 93.7 fl (78-100); Mean Corpuscular Hgb Concent. 32.7 g/dl (32-36); Mean Platelet Volume 10.8 fl (6-9.5); Monocyte (Absolute #) 0.91 (0.0-1.3); Monocytes % 11.1 % (0.0-12.0); Platelet Count 223 K/mm3 (150-450); Red Blood Count 3.17 M/mm3 (4.1-5.4); Red Cell Distribution Width 16.2 % (11.5-14.0); White Blood Count 8.2 K/mm3 (4.0-10.5)
[2017-12-22 08:40] LABS: Mean Corpuscular Hemoglobin 30.5 pg (26-32)
[2017-12-22 08:45] LABS: ANION GAP 16.2 MEQ/L (5-15); Calcium 9.5 mg/dL (8.4-10.2); Creatinine 1 1.93 mg/dL (0.52-1.04); Potassium 4.5 mmol/L (3.5-5.1)
[2017-12-22] MEDS: ZYLOPRIM 100 MG PO SCH (10:00)
[2017-12-22] MEDS: XARELTO 10 MG TABLET PO SCH (10:00)
[2017-12-22] MEDS: Tricor 145 MG PO SCH (10:00)
[2017-12-22] MEDS: MAG-OX 400 PO SCH (10:00)
[2017-12-22] MEDS: Toprol-Xl 25MG Tablets PO SCH (10:00)
[2017-12-22] MEDS: Protonix 40MG Tablet PO SCH (10:00)
[2017-12-22] MEDS: Oxycontin 20 MG ER PO SCH (10:00)
[2017-12-22] MEDS ORDERED: Cardizem CD 180 MG PO SCH (10:00)
[2017-12-22] MEDS: Lasix 20 MG/2 ML IV SCH (10:01)
[2017-12-22 11:39] VITALS: PULSE 95
[2017-12-22 16:55] VITALS: BP 116/55; O2SAT 98
== END 2017-12-22 17:40 | disposition short-term general hospital (02) ==
LOC: ED 18:12 → MED SURG 22:53
PROVIDERS: ADMIT Family Medicine; ATTEND Family Medicine
DX: I50.21 Acute systolic (congestive) heart failure (principal); I48.91 Unspecified atrial fibrillation; E11.9 Type 2 diabetes mellitus without complications; Z79.899 Other long term (current) drug therapy; Z79.01 Long term (current) use of anticoagulants
CPT/HCPCS: 36000; 36415; 51702; 70450; 71045; 80048; 80053; 81002; 82805; 83605; 83735; 83880; 84484; 85025; 85027; 93005; 93041; 93268; 94150; 94640; 94760; 96374; 99285; J1940; Q3014; A9270-GY; G0378

== ENCOUNTER 2018-01-17 09:31 | Inpatient (IN) | payer MEDICARE, OTHER ==
[2018-01-17] MEDS ORDERED: Zofran 4 MG/2 ML VIAL IV PRN (12:06)
[2018-01-17] MEDS ORDERED: XARELTO 10 MG TABLET PO SCH ×2 (13:00→22:00)
--- NOTE | 2018-01-17 13:04 | XRAY ---
Indication: Pain. Short of breath. CKD. Multiple contiguous axial images obtained through the abdomen and pelvis without contrast as ordered. Comparison: May 11, 2017. Study is slightly degraded by respiration artifact throughout. Lung bases demonstrates new mild/moderate bilateral effusions with adjacent atelectasis, right greater than left. Also new cardiomegaly. Noncontrasted stomach and bowel loops again nonobstructed. New small perihepatic, perisplenic, left colic, and pelvic free fluid. No walled off fluid collection or free air. Also new anasarca. Stable cholecystectomy, hysterectomy, hepatic/splenic calcified granulomas, left renal atrophy, and bilateral renal cysts. Remaining liver, pancreas, spleen, adrenal glands, kidneys, ureters, and bladder appear unremarkable for noncontrast exam. There remains extensive aortoiliac calcifications including origin of great branches. Osseous structures again demonstrates osteopenia, multilevel degenerative spondylosis, and L4 grade 1 spondylolisthesis. Stable small fatty umbilical hernia. Impression: 1. Respiration artifact. 2. New cardiomegaly, bibasilar effusions, tiny abdomen/pelvic ascites, and anasarca favoring cardiac decompensation. 3. Stable left renal atrophy, bilateral renal cysts, extensive arteriosclerotic disease, fatty umbilical hernia, and hepatic/splenic aspect granulomas. CT DI 16.96
[2018-01-17] MEDS: Sodium Chloride 0.9% 1000 ML 1,000 ML IV SCH (13:32)
[2018-01-17] MEDS: Oxycontin 20 MG ER PO SCH ×2 (13:34→21:34)
[2018-01-17] MEDS: Toprol Xl 50 MG PO SCH (13:35)
[2018-01-17] MEDS: Protonix 40MG Tablet PO SCH (13:35)
[2018-01-17] MEDS ORDERED: TYLENOL 325 MG PO PRN (13:54)
[2018-01-17] MEDS ORDERED: NORVASC 5 MG PO SCH (14:00)
[2018-01-17] MEDS: ZYLOPRIM 100 MG PO SCH ×2 (14:35→21:36)
[2018-01-17] MEDS: Apresoline 25 MG TABLET PO SCH ×2 (15:53→21:35)
[2018-01-17] MEDS: XANAX 1 MG PO SCH ×2 (15:53→21:35)
--- NOTE | 2018-01-17 16:07 | PCM.HP ---
History of Present Illness - Chief Complaint Chief Complaint: acute on chronic kidney failure History of Present Illness: is a 77 year old female who was recently admitted to [facility], of chf and vascular disease CAD and PVD. she has a history of chf and a fib, found to have elevated BUN/Cr and high potassium on labs. she is demented and has declined signficantly over the last few months. - Review of Systems Constitutional: Weakness, No Fever, No Chills Ears, Nose, & Throat: No Symptoms Respiratory: No Cough, No Short Of Breath Cardiac: No Chest Pain, No Edema, No Syncope Abdominal/Gastrointestinal: No Abdominal Pain, No Nausea, No Vomiting, No Diarrhea Genitourinary Symptoms: No Dysuria Musculoskeletal: Back Pain, Fall Skin: No Rash All Other Systems: Reviewed and Negative Medications & Allergies Home Medications: Home Medication List Alprazolam 1 mg [Xanax 1 mg] 1 mg PO TID 05/24/15 [History Confirmed 01/17] Amlodipine Besylate 10 mg [Norvasc 10 MG] 10 mg PO DAILY 05/24/15 [History Confirmed 01/17/18] Fenofibrate,Micronized 145 mg* [Tricor 145 MG] 145 mg PO DAILY 05/24/15 [ History Confirmed 01/17/18] Oxycodone HCl Cr 40 mg [Oxycontin 40 mg ER] 40 mg PO Q12H 05/24/15 [ History Confirmed 01/17/18] PANTOPRAZOLE 40 mg Tablet [Protonix 40MG Tablet] 40 mg PO DAILY 05/24/15 [ History Confirmed 01/17/18] Allopurinol 100 mg [Zyloprim 100 mg] 100 mg PO BID 05/11/17 [History Confirmed 01/17/18] Furosemide 40 mg [Lasix 40 MG] 40 mg PO BID 12/13/17 [History Confirmed ] Metoprolol Succinate 50 mg PO DAILY 12/13/17 [History Confirmed 01/17/18] Pravastatin Sodium 20 mg PO HS 12/13/17 [History Confirmed 01/17/18] Acetaminophen 325 mg [Tylenol 325 mg] 650 mg PO Q4H PRN PRN 01/17/18 [ History Confirmed 01/17/18] Glucagon 1 mg [GlucaGen 1 MG] 1 mg IM HS PRN PRN 01/17/18 [History Confirmed 01/17/18] HydrALAzine HCL 25 MG TAB [Apresoline 25 MG TABLET] 25 mg PO TID 01/17/18 [History Confirmed 01/17/18] Potassium Chloride [Potassium Chloride] 20 meq PO BID 01/17/18 [History Confirmed 01/17/18] Rivaroxaban [Xarelto] 15 mg PO HS 01/17/18 [History Confirmed 01/17/18] Allergies/Adverse Reactions: Allergies Allergy/AdvReac Type Severity Reaction Status Date / Time zolpidem tartrate Allergy Verified 12/20/17 19:03 [From Ambien] - Past Medical History Past Medical History: Yes Neurological History: TIA ENT History: No Pertinent History Cardiac History: Coronary Artery Disease, High Cholesterol, Hypertension, Myocardial Infarction (NM) Respiratory History: No Pertinent History Endocrine Medical History: Diabetes Type I Musculoskelatal History: Arthritis, Degenerative Disk Disease, Osteoarthritis GI Medical History: Gallbladder Disease, Hernia History: Other Pyscho-Social History: Anxiety Reproductive Disorders: No Pertinent History Comment: Kidney stones - Female History Are you now?: No - Past Surgical History Past Surgical History: Yes Neuro Surgical History: No Pertinent History Cardiac History: CABG Respiratory Surgery: No Pertinent History GI Surgical History: Appendectomy, Cholecystectomy, Other Genitourinary Surgical Hx: No Pertinent History Musculskeletal Surgical Hx: Orthopedic Surgery Female Surgical History: Hysterectomy Other Surgical History: Colonoscopy, STENT PUT IN ARTERY IN STOMACH. bilat. knee replacement - Social History Smoking Status: Never smoker How long have you smoked: 2 MONTHS Exposure to second hand smoke: Yes Alcohol: None Drug Use: none - Physical Exam Vital Signs: Vital Signs - 24 hr Temp Pulse Resp BP Pulse Ox 01/17/18 12:45 98 01/17/18 12:41 97.7 F 95 H 20 108/57 90 L General Appearance: no apparent distress Neurologic Exam: alert, No oriented x 3 Eye Exam: PERRL/EOMI, eyes nml inspection Respiratory Exam: crackles/rales Cardiovascular Exam: irregular Gastrointestinal/Abdomen Exam: soft, normal bowel sounds, No tenderness, No mass Extremity Exam: pedal edema Skin Exam: normal color, warm, dry, No rash Results - Radiology Impressions Radiology Exams & Impressions: Radiology Procedures Category Date Time Status ABDOMEN AND PELVIS W/0 CONTRAS [CT] Routine Exams 01/17/18 12:15 Completed - Other Procedures and Tests Respiratory Therapy 01/17/18 12:55 Oxygen NASAL CANNULA 2 lpm Assessment/Plan (1) Acute on chronic kidney failure Current Visit: No Status: Acute Onset Date: ~01/17/18 Assessment & Plan: gentle hydration ordered, hold diuretics at this time, hold po potassium. patient has a grim prognosis most likely with generalized anasarca and dramatically worsened renal function. will consult Dr Delacruz Code(s): N17.9 - ACUTE KIDNEY FAILURE, UNSPECIFIED; N18.9 - CHRONIC KIDNEY DISEASE, UNSPECIFIED (2) CHF (congestive heart failure) Current Visit: Yes Status: Acute Assessment & Plan: dramatically worse suddenly, consult Dr Garcia, suprisingly echo on 12/13 showed preserved systolic function Code(s): I50.9 - HEART FAILURE, UNSPECIFIED (3) Anasarca Current Visit: Yes Status: Acute Assessment & Plan: may be more related to renal dysfunction that cardiac decompensation based on echo 11/2017 showing preserved EF Code(s): R60.1 - GENERALIZED EDEMA (4) Elevated liver function tests Current Visit: No Status: Acute Onset Date: ~01/17/18 Code(s): R79.89 - OTHER SPECIFIED ABNORMAL FINDINGS OF BLOOD CHEMISTRY
[2018-01-18] MEDS: Sodium Chloride 0.9% 1000 ML 1,000 ML IV SCH (00:56)
[2018-01-18 04:23] LABS: Appearance CLEAR (CLEAR); Bacteria RARE /HPF (NEGATIVE); Bilirubin NEGATIVE (NEGATIVE); Blood NEGATIVE Ery/ul (0-5); Epithelial Cells FEW /HPF (FEW); Glucose NEGATIVE (NEGATIVE); Hyaline Casts 0-2 /LPF (0-2); Ketones NEGATIVE (NEGATIVE); Leukocyte Esterase NEGATIVE (NEGATIVE); Nitrite NEGATIVE (NEGATIVE); Protein,Urine Dip TRACE (Negative); Specific Gravity 1.015 (1.005-1.025); Urobilinogen NORMAL mg/dL (0-1); WBC 0-2 /HPF (0-5)
[2018-01-18 05:38] LABS: BASOPHIL % 0.1 % (0.0-0.4); Basophil (Absolute #) 0.01 (0-0.4); Eosinophil % 0.1 % (0.00-5.0); Eosinophil (Absolute #) 0.01 (0-0.5); Granulocyte Absolute (ANC) 5.98 (1.4-6.9); Granulocytes % 82.5 % (36.0-66.0); Hematocrit 28.3 % (35-47); Hemoglobin 9.6 gm/dl (12.0-16.0); Lymphocyte (Absolute #) 0.83 (1.0-4.6); Lymphocytes % 11.4 % (24.0-44.0); Mean Cell Volume 88.4 fl (78-100); Mean Corpuscular Hgb Concent. 33.9 g/dl (32-36); Mean Platelet Volume 10.8 fl (6-9.5); Monocyte (Absolute #) 0.43 (0.0-1.3); Monocytes % 5.9 % (0.0-12.0); Platelet Count 197 K/mm3 (150-450); Red Cell Distribution Width 16.8 % (11.5-14.0); White Blood Count 7.3 K/mm3 (4.0-10.5)
[2018-01-18 06:02] LABS: ALBUMIN 3.7 g/dL (3.5-5.0); ANION GAP 19.7 MEQ/L (5-15); BILIRUBIN,TOTAL 1.2 mg/dL (0.2-1.3); Calcium 9.5 mg/dL (8.4-10.2); Creatinine 1 3.92 mg/dL (0.52-1.04); Total Protein 6.6 g/dL (6.3-8.2)
[2018-01-18] MEDS: XANAX 1 MG PO SCH ×2 (08:22→14:00)
[2018-01-18] MEDS: Toprol Xl 50 MG PO SCH (08:22)
[2018-01-18] MEDS: ZYLOPRIM 100 MG PO SCH (08:22)
[2018-01-18] MEDS: Apresoline 25 MG TABLET PO SCH (08:22)
[2018-01-18] MEDS: Oxycontin 20 MG ER PO SCH (08:22)
[2018-01-18] MEDS: Protonix 40MG Tablet PO SCH (08:22)
--- NOTE | 2018-01-18 08:28 | PCM.DS ---
Discharge Summary Date of Admission: 01/17/18 11:31 Admitting Physician: MIKY IQBAL Consults: Consults on Case 01/17/18 15:12 Consult Nephrology ROUTINE 01/17/18 15:13 Consult Cardiology ROUTINE Primary Care Provider: MIKY IQBAL Allergies Allergies zolpidem tartrate [From Ambien] Allergy (Verified 12/20/17 19:03) Hospital Summary - Hospital Course Hospital Course: patient was admitted with acute on chronic renal failure, no improvement with hydration. Dr Delacruz follows, Dr Yusuf saw her in consult and labs show no improvement with hydration. will likely require transfer for dialysis, the patient and her are in agreement with transfer for HD. - Vitals & Intake/Output Vital Signs: Vital Signs Temperature 97.4 F 01/18/18 06:40 Pulse Rate 101 H 01/18/18 06:40 Respiratory Rate 16 01/18/18 06:40 Blood Pressure 120/74 01/18/18 06:40 O2 Sat by Pulse Oximetry 97 01/18/18 07:14 Oxygen-Last Documented O2 Percentage 2 Liters = 28% Intake & Output: Intake & Output 01/15/18 01/16/18 01/17/18 01/18/18 11:59 11:59 11:59 11:59 Intake Total 1472 Output Total 575 Balance 897 Weight 62 kg - Lab Result Diagrams: 01/18/18 05:20 01/18/18 04:00 Lab Results-Last 24 Hrs: Lab Results-Last 24 Hours 01/17/18 01/18/18 01/18/18 Range/Units 20:39 04:00 04:05 WBC (4.0-10.5) K/mm3 RBC (4.1-5.4) M/mm3 Hgb (12.0-16.0) gm/dl Hct (35-47) % MCV (78-100) fl MCH (26-32) pg MCHC (32-36) g/dl RDW (11.5-14.0) % Plt Count (150-450) K/mm3 MPV (6-9.5) fl Gran % (36.0-66.0) % Eos # (Auto) (0-0.5) Absolute Lymphs (auto) (1.0-4.6) Absolute Monos (auto) (0.0-1.3) Lymphocytes % (24.0-44.0) % Monocytes % (0.0-12.0) % Eosinophils % (0.00-5.0) % Basophils % (0.0-0.4) % Absolute Granulocytes (1.4-6.9) Basophils # (0-0.4) Sodium 134 L (137-145) mmol/L Potassium 5.0 (3.5-5.1) mmol/L Chloride 96 L (98-107) mmol/L Carbon Dioxide 23 (22-30) mmol/L Anion Gap 19.7 H (5-15) MEQ/L BUN 88 H (7-17) mg/dL Creatinine 3.92 H (0.52-1.04) mg/dL Estimated GFR 11.9 ML/MIN Glucose 62 L (74-106) mg/dL Calcium 9.5 (8.4-10.2) mg/dL Magnesium 3.0 H 3.0 H (1.6-2.3) mg/dL Total Bilirubin 1.20 (0.2-1.3) mg/dL AST 79 H (14-36) U/L ALT 42 H (0-35) U/L Alkaline Phosphatase 85 (38-126) U/L Serum Total Protein 6.6 (6.3-8.2) g/dL Albumin 3.7 (3.5-5.0) g/dL Ur Collection Type CLEAN CATCH Urine Color YELLOW (YELLOW) Urine Appearance CLEAR (CLEAR) Urine pH 5.0 (5-6) Ur Specific [place] 1.015 (1.005-1.025) Urine Protein TRACE (Negative) Urine Ketones NEGATIVE (NEGATIVE) Urine Blood NEGATIVE (0-5) Jonathon/ul Urine Nitrite NEGATIVE (NEGATIVE) Urine Bilirubin NEGATIVE (NEGATIVE) Urine Urobilinogen NORMAL (0-1) mg/dL Ur Leukocyte Esterase NEGATIVE (NEGATIVE) Urine Microscopic WBC 0-2 (0-5) /HPF Ur Epithelial Cells FEW (FEW) /HPF Urine Bacteria RARE (NEGATIVE) /HPF Hyaline Casts 0-2 (0-2) /LPF Urine Culture Reflexed NO (NO) Urine Glucose NEGATIVE (NEGATIVE) mg/dL Specimen Received 01/18/18 0405 01/18/18 Range/Units 05:20 WBC 7.3 (4.0-10.5) K/mm3 RBC 3.20 L (4.1-5.4) M/mm3 Hgb 9.6 L (12.0-16.0) gm/dl Hct 28.3 L (35-47) % MCV 88.4 (78-100) fl MCH 30.0 (26-32) pg MCHC 33.9 (32-36) g/dl RDW 16.8 H (11.5-14.0) % Plt Count 197 (150-450) K/mm3 MPV 10.8 H (6-9.5) fl Gran % 82.5 H (36.0-66.0) % Eos # (Auto) 0.01 (0-0.5) Absolute Lymphs (auto) 0.83 L (1.0-4.6) Absolute Monos (auto) 0.43 (0.0-1.3) Lymphocytes % 11.4 L (24.0-44.0) % Monocytes % 5.9 (0.0-12.0) % Eosinophils % 0.1 (0.00-5.0) % Basophils % 0.1 (0.0-0.4) % Absolute Granulocytes 5.98 (1.4-6.9) Basophils # 0.01 (0-0.4) Sodium (137-145) mmol/L Potassium (3.5-5.1) mmol/L Chloride (98-107) mmol/L Carbon Dioxide (22-30) mmol/L Anion Gap (5-15) MEQ/L BUN (7-17) mg/dL Creatinine (0.52-1.04) mg/dL Estimated GFR ML/MIN Glucose (74-106) mg/dL Calcium (8.4-10.2) mg/dL Magnesium (1.6-2.3) mg/dL Total Bilirubin (0.2-1.3) mg/dL AST (14-36) U/L ALT (0-35) U/L Alkaline Phosphatase (38-126) U/L Serum Total Protein (6.3-8.2) g/dL Albumin (3.5-5.0) g/dL Ur Collection Type Urine Color (YELLOW) Urine Appearance (CLEAR) Urine pH (5-6) Ur Specific [place] (1.005-1.025) Urine Protein (Negative) Urine Ketones (NEGATIVE) Urine Blood (0-5) Jonathon/ul Urine Nitrite (NEGATIVE) Urine Bilirubin (NEGATIVE) Urine Urobilinogen (0-1) mg/dL Ur Leukocyte Esterase (NEGATIVE) Urine Microscopic WBC (0-5) /HPF Ur Epithelial Cells (FEW) /HPF Urine Bacteria (NEGATIVE) /HPF Hyaline Casts (0-2) /LPF Urine Culture Reflexed (NO) Urine Glucose (NEGATIVE) mg/dL Specimen Received - Radiology Exams Ordered Rad Exams-Entire Visit: Radiology Procedures Category Date Time Status ABDOMEN AND PELVIS W/0 CONTRAS [CT] Routine Exams 01/17/18 12:15 Completed - Procedures and Test Procedures and Tests throughout Hospitalization: Therapy Orders & Screens 01/17/18 12:55 Oxygen NASAL CANNULA 2 lpm Comment: Diagnosis: acute on chronic kidney failure Discharge Exam General Appearance: mild distress Neurologic Exam: alert, No oriented x 3 Skin Exam: normal color Respiratory Exam: crackles/rales Cardiovascular Exam: regular rate/rhythm, normal heart sounds Gastrointestinal/Abdomen Exam: soft, No tenderness, No mass Extremity Exam: normal inspection, normal range of motion Final Diagnosis/Problem List - Final Discharge Diagnosis/Problem (1) Acute on chronic kidney failure Current Visit: No Status: Acute Onset Date: ~01/17/18 Assessment & Plan: transfer per Dr Yusuf, appreciate his input. prognosis is poor at this time and I have discussed this with Sydni and her Anupam, they understand her diagnosis and prognosis. (2) CHF (congestive heart failure) Current Visit: Yes Status: Acute (3) Anasarca Current Visit: Yes Status: Acute (4) Elevated liver function tests Current Visit: No Status: Acute Onset Date: ~01/17/18 - [facility] Condition: Stable Prescriptions: No Action Amlodipine Besylate 10 mg [Norvasc 10 MG] 10 mg PO DAILY Fenofibrate,Micronized 145 mg* [Tricor 145 MG] 145 mg PO DAILY Oxycodone HCl Cr 40 mg [Oxycontin 40 mg ER] 40 mg PO Q12H Alprazolam 1 mg [Xanax 1 mg] 1 mg PO TID PANTOPRAZOLE 40 mg Tablet [Protonix 40MG Tablet] 40 mg PO DAILY Allopurinol 100 mg [Zyloprim 100 mg] 100 mg PO BID Furosemide 40 mg [Lasix 40 MG] 40 mg PO BID Metoprolol Succinate 50 mg PO DAILY Pravastatin Sodium 20 mg PO HS Potassium Chloride [Potassium Chloride] 20 meq PO BID Rivaroxaban [Xarelto] 15 mg PO HS HydrALAzine HCL 25 MG TAB [Apresoline 25 MG TABLET] 25 mg PO TID Glucagon 1 mg [GlucaGen 1 MG] 1 mg IM HS PRN PRN PRN Reason: Hypoglycemia Acetaminophen 325 mg [Tylenol 325 mg] 650 mg PO Q4H PRN PRN PRN Reason: Pain
--- NOTE | 2018-01-18 08:57 | CONS ---
CONSULT DATE: 01/17/2018 REASON FOR CONSULT: Acute on chronic kidney disease. HISTORY: The patient is a 77 year-old lady with history of chronic kidney disease stage IV thought to be related to diabetes, hypertension and atherosclerotic vascular disease. She follows with Dr. Delacruz. Her baseline creatinine is somewhere around 2 and her glomerular filtration rate is around 30. She apparently was recently at [facility] in [place] for congestive heart failure and volume overload. She was thought to have congestive heart failure with preserved ejection fraction. She had pleural effusion. She had volume overload. Her diuretics were adjusted. She became weak and she was discharged to a alf/rehab facility [facility] in [place]. Over there she has been declining. She has not been eating or drinking well, has been demented and more confused, lethargic, drowsy, sleepy, has not been communicating, has not been participating in PT. Dr. Kaur checked her labs. Her hemoglobin was 9.2, BUN 92, creatinine 3.7, potassium 5.7 and sodium 131. There is a history of her receiving Bactrim as antibiotic for urinary tract infection at the alf. PAST MEDICAL HISTORY: Chronic kidney disease stage IV, diabetes mellitus, hypertension, coronary artery disease, atrial fibrillation, peptic ulcer disease, osteoarthritis, nephrolithiasis, myocardial infarction, osteoarthritis, degenerative disc disease. PAST SURGICAL HISTORY: Appendectomy, cholecystectomy, orthopedic surgery, hysterectomy, colonoscopy, bilateral knee replacement. MEDICATIONS: Home medications were reviewed. She was apparently receiving Bactrim at the alf. She is on Furosemide 40 mg b.i.d., amlodipine along with potassium pills. The detailed medicine list was reviewed. ALLERGIES: ZOLPIDEM. SOCIAL HISTORY: No history of tobacco, alcohol or substance abuse. She is . She was living with her up until she ended up in the hospital and now she is in a rehab. FAMILY HISTORY: No reported history of kidney disease in the family. REVIEW OF SYSTEMS: The patient is very weak, lethargic, drowsy and sleepy. History unobtainable, submitted from the records. The patient's family, her and daughter are at bedside. The patient has not been eating or drinking well. She has been very lethargic, has not been participating in PT. She has very poor appetite. She has had one episode of vomiting, one episode of diarrhea. The patient has not been eating much. The rest of the review of systems unobtainable except as stated above. PHYSICAL EXAMINATION: The patient is drowsy, lethargic, sleepy, not in any acute distress. VITAL SIGNS: Temperature 97.7F, pulse rate 95, respiratory rate 20, blood pressure 108/57. Saturating 98%. HEENT: Atraumatic, normocephalic. Eyes nonicteric. ENT: Mucosa moist. NECK: No JVD. CHEST: Trachea in middle of chest. Bilateral rhonchi, occasional rale. No respiratory distress. CVS: Appears regular. EXTREMITIES: 1+ pedal edema bilateral. ABDOMEN: Soft, nontender, positive bowel sounds. NEUROLOGIC: The patient is drowsy, lethargic, sleepy and not in acute distress. PSYCHIATRIC: Appropriate mood and affect. The patient has poor neurologic status. SKIN: Warm and dry. LAB DATA AND TESTS: Hemoglobin 9.2, white blood cell 6.9. BUN 92, creatinine 3.75, sodium 151, potassium 4.7. She had a CT scan done which showed cardiomegaly with new bibasilar effusions, ascites, anasarca and cardiac decompensation with renal atrophy, left renal cyst, extensive atherosclerotic disease. ASSESSMENT AND PLAN: A 77 year-old lady with medical problems: 1) Acute kidney disease on top of underlying chronic kidney disease stage IV. The patient's renal functions seem to be getting worse. She may have progression of renal disease or she may have acute kidney disease related to Bactrim or she could have cardiorenal syndrome. Recommend avoiding Bactrim and any nephrotoxic agents. Will give her some gentle hydration although she is showing signs of volume overload already. She is becoming uremic. She is not eating or drinking as well. Options were discussed with the patient's family including her and daughter who are at the bedside. They voiced their understanding and wished to proceed as necessary. I will monitor labs tomorrow. If her renal function does not improve much and if her uremia does not improve much she will likely need to be transferred to [place] and require dialysis. 2) Hypertension. I recommend continuing present medications. We may avoid amlodipine because of her edema use alternative agents and avoid ACRB because of acute kidney injury. 3) Hyperlipidemia. Recommend stopping and avoiding Fenofibrate, statin use okay. 4) Congestive heart failure with diastolic dysfunction. As stated above will give gentle hydration but she had shown signs of anasarca with present fluid status and the BUN is already 92. She is not a candidate for ACRB's with her fluid status and she will likely require pantoprazole to prevent enteritis. 5) Abnormal liver function tests. I recommend stopping Fenofibrate and even statins with current abnormal liver function tests. 6) Anemia. Monitor white blood cell count, hemoglobin closely. 7) Lethargy, drowsiness, sleepiness. It is likely secondary to uremia. Recommend avoiding any medications that could make her sleepy. I will follow with her closely. The patient's family members updated who are at the bedside. Thank you for the consultation. Please do not hesitate to contact me for any questions.
[2018-01-18 10:05] LABS: Folate (Folic Acid) 19.7 ng/mL (2.76 - >20)
[2018-01-18 10:23] LABS: Iron 54 ug/dL (37-170)
[2018-01-18 10:34] LABS: Iron Saturation 15 % (20-39); TIBC 359 ug/dL (265-462)
[2018-01-18 11:42] VITALS: BP 111/59; PULSE 91; O2SAT 96
== END 2018-01-18 14:00 | disposition short-term general hospital (02) | DRG 683 ==
LOC: MED SURG 11:31
PROVIDERS: ADMIT Family Medicine; ATTEND Family Medicine
DX: N17.9 Acute kidney failure, unspecified (principal); I25.810 Atherosclerosis of coronary artery bypass graft(s) without angina pectoris; N18.9 Chronic kidney disease, unspecified; I50.9 Heart failure, unspecified; R60.1 Generalized edema; R79.89 Other specified abnormal findings of blood chemistry; Z79.899 Other long term (current) drug therapy
CPT/HCPCS: 36415; 74176; 80053; 81000; 82607; 82728; 82746; 83540; 83550; 83735; 85025; 85027; 94760; P9603; J2405; A9270-GY